=== PATIENT | female | born 1935 | race Caucasian/White ===

== ENCOUNTER 2023-11-19 15:35 | Outpatient (AMB) | payer MEDICARE, SELFPAY ==
[2023-11-19 15:47] VITALS: BP 162/90; PULSE 66; O2SAT 99
--- NOTE | 2023-11-19 15:47 | A.OFFPC_ITS ---
Vital Signs 11/19/23 15:47 BMI Reason not done Patient refused/unable BP 162/90 H Blood Pressure Location Rt brachial Position Sitting Pulse 66 Pulse Source Pulse Oximeter Pulse Oximetry (%) 99 Oxygen Delivery Method Room Air Intake Visit Reasons: Establish Care not a transfer Intake Note: Patient is accompanied by her daughter. Patient is here to establish care and she has concerns for her ability to breath upon exertion. Patient reports feeling nauseous all of the time, swollen legs, feels weakness all over the body, not eating, and overall feels sick and cold. Patient reports these symptoms have been going on since August 2023 with a slow and steady decline. Patient was seen at [facility] in August 2023 for about 4-5 days. Patients daughter reports when patient tries to move around to get a bottle of water patient becomes out of breath. Patients daughter reports she is seen by Dr. Coleman who seems more interested in her pacemaker than her cardiac health overall. Patients daughter reports she is usually very active within her community and since august 2023 she has not been able to do any of the things she would normally do. Patients daughter has a pressure sore on her bum she needs checked out. Nurse Staff Industrial Required: No Accompanied by: Daughter Allergies cephalexin [From Keflex] Allergy (Severe, Verified 11/19/23 16:01) Unknown ciclopirox [From Loprox] Allergy (Severe, Verified 11/19/23 16:01) Unknown ciprofloxacin Allergy (Severe, Verified 11/19/23 16:01) Unknown hydromorphone [From Dilaudid] Allergy (Severe, Verified 11/19/23 16:01) Unknown tetracycline Allergy (Severe, Verified 11/19/23 16:01) Unknown Tobacco use date assessed: 11/19/23 Fall risk assessment: No Falls in past year Last assessed Fall Risk: 11/19/23 Dental Screening Dental Screen Date: 11/19/23 Did you have a dental visit in the last 12 months?: Yes Did you have a dental problem in the last 6 months where you did not have access to dental care?: No Was dental information given to patient?: Patient has dentist HPI HPI Comments History of Present Illness Details The patient is a 88-year-old female with a past medical history of paroxysmal atrial fibrillation, diastolic CHF, hypertension, pacemaker, chest pain, multiple pulmonary nodules, renal lesion, hypertension, lymphedema presenting to establish care. She is transferring from [facility]. CV: On amlodipine 5 mg daily, spironolactone 25 mg daily, Xarelto 20 mg daily. Follows with [facility] EP, Dr Coleman. Seen at [facility] ER in August 2023. Presented with chest pain. ACS rule out. Prior to this she was hospitalized for cellulitis of the neck and noted to be hypokalemic. CT angio of the chest done at this ER visit noted a 1.3 cm right lower lobe pulmonary nodule that had been seen in the past but had increased in size. Chest CT in 6 months was recommended. There was a hyperdense lesion of the left kidney with recommendation for renal protocol MRI or CT. She was treated for hypertensive urgency. She reports exertion dyspnea She has intermittent chest pain Patient reports feeling nauseous all of the time. feels weakness all over the body, not eating, and overall feels sick and cold Leg have been swollen since taken off both furosemide and chlorthalidone during hospitalization. currently taking 10meq potassium. On spironolactone Colonoscopy was in 2013. There was a polypectomy done at that time. Her last H&H as of 08/2023 was normal ROS see HPI PHYSICAL EXAM: GENERAL: Alert and oriented x 3. NAD EYES: EOMI. Anicteric. HENT: Moist mucous membranes. No scleral icterus. LUNGS: Clear to auscultation bilaterally. CARDIOVASCULAR: Regular rate and rhythm. No murmur. No JVD. ABDOMEN: Soft, non-tender +bs EXTREMITIES: 1+ b/l lower extremity edema SKIN: Thin. Senile purpura. NEUROLOGIC: No focal neurological deficits. Generally weak-using wheelchair PSYCHIATRIC: Cooperative. Appropriate mood and affect [facility] Medical History History of echocardiogram GERD (gastroesophageal reflux disease) Epileptic seizure Venous insufficiency Diverticulosis Pacemaker Lymphedema Hypertension Sick sinus syndrome Lumbar degenerative disc disease CHF (congestive heart failure) Atrial fibrillation Hypokalemia Chest pain Multiple pulmonary nodules Renal lesion Surgical History History of colonoscopy with polypectomy History of cholecystectomy History of hysterectomy Family History Mother Hypertension Father Hypertension Cancer Social History Household Members: Other Housing: Assisted Living Facility 75 years or older and lives alone: No Alcohol intake: unknown Patient Tobacco Use Status: Refuse Tobacco use screen e-Cigarette/Vaping Use: Never Used Use of substances other than those prescribed or required for medical reasons: No Have you been hit, kicked, punched, or otherwise hurt by someone within the past year? If so, by whom?: No Do you feel safe in your current relationship?: No Current Relationship Is there a partner from a previous relationship who is making you feel unsafe now?: No Are you made to feel afraid or neglected: No service: No Current occupational status: retired Current occupational exposures/hazards: No Cognitive needs: No Hearing needs: Yes Vision needs: Yes Questionnaire PHQ-9 Over the last 2 weeks, how often have you been bothered by any of the following problems? 23728 - PHQ-9 Billing: Patient declined-do not bill Source: Developed by Drs. Getachew Marrero, Daphne Slater, Elliott Graves and colleagues, with an educational russell from [employer]. Thrive Questionnaire Date Thrive assessed: 11/19/23 I am a: Patient What is your living situation today?: I have a steady place to live Within the past 12 months, did the food you bought not last and you didn't have the money to get more?: Never true Within the past 12 months, did you worry whether your food would run out before you got money to buy more?: Never true Do you have trouble paying for medicines?: No Do you have trouble getting transportation to medical appointments?: No Do you have trouble paying your heating and electricity bill?: No Do you have trouble taking care of your child, family member or friend?: No Do you have trouble with day-to-day activities such as bathing, preparing meals, shopping, managing finances, etc.?: Yes (bathing) Are you currently unemployed and looking for a job?: No Are you interested in more education?: No Please select the resources that you would like help with: Daily support and None Currently or been in a relationship where the following occur: No concerns reported THRIVE Score: 0 AUDIT C Alcohol Use Questionnaire (AUDIT-C) 1. How often do you have a drink containing alcohol?: Never 3. How often do you have six or more drinks on one occasion?: Never Total Score: 0 DANAY-7 AMB Questionnaire DANAY-7 Date DANAY - 7 assessed: 11/19/23 Source: Developed by Drs. Getachew Marrero, Daphne Slater, Elliott Graves and colleagues, with an educational russell from [employer]. DANAY-7 Assessment Billing DANAY-7 Assessment Tool: pt declined-do not bill Physical exam (Primary Care) Vital Signs: Last Vital Signs Pulse 66 11/19/23 15:47 BP 162/90 H 11/19/23 15:47 Pulse Ox 99 11/19/23 15:47 Oxygen Delivery Method Room Air 11/19/23 15:47 Tobacco/Smoking Status: Tobacco use Status Tobacco use date assessed 11/19/23 11/19/23 16:06 Thrive Assessment: Date of Thrive Assessment Date Thrive assessed 11/19/23 11/19/23 16:13 Currently or been in a relationship where the following occur: No concerns reported Assessment and Plan Assessment & Plan (1) CHF (congestive heart failure): Code(s): I50.9 - Heart failure, unspecified Qualifiers: Heart failure type: diastolic Heart failure chronicity: acute on chronic Qualified Code(s): I50.33 - Acute on chronic diastolic (congestive) heart failure Plan: Needs to update echo and stress test radha. Last echo 2021. Hypervolemic on exam Referral placed to Dr Velasco. Continue follow up with EP Restart furosemide -40mg daily. Increase potassium to 20meq. Labs one week (2) Atrial fibrillation: Code(s): I48.91 - Unspecified atrial fibrillation Qualifiers: Atrial fibrillation type: persistent (not longstanding) Qualified Code(s): I48.19 - Other persistent atrial fibrillation Plan: s/p pacemaker (3) Sick sinus syndrome: Code(s): I49.5 - Sick sinus syndrome (4) Renal lesion: Code(s): N28.9 - Disorder of kidney and ureter, unspecified Plan: CT ordered (5) Pressure ulcer: Code(s): L89.90 - Pressure ulcer of unspecified site, unspecified stage Qualifiers: Pressure injury location: buttock Pressure injury stage: stage 1 Laterality: right Qualified Code(s): L89.311 - Pressure ulcer of right buttock, stage 1 Plan: Home bound due to wheelchair status, unable to self propel, generalized weakness (6) Lung nodule: Code(s): R91.1 - Solitary pulmonary nodule Plan: upcoming visit with Dr Gomes at [facility] Orders: Orders NM reynold perf SPECT rest & str 11/19/23 R07.9 - Chest pain, unspecified Comprehensive Met. Panel 11/19/23 I50.9 - Heart failure, unspecified, I89.0 - Lymphedema, not elsewhere classified CA echo transthoracic complete 11/19/23 I50.9 - Heart failure, unspecified, R07.9 - Chest pain, unspecified CT abdomen wo/w IV con 11/19/23 N28.89 - Other specified disorders of kidney and ureter Referrals Cardiology Referral I48.91 - Unspecified atrial fibrillation, I50.9 - Heart failure, unspecified [facility] Referral I89.0 - Lymphedema, not elsewhere classified, L89.90 - Pressure ulcer of unspecified site, unspecified stage, R53.1 - Weakness Medications: New furosemide 40 mg PO DAILY 90 tabs 3RF potassium chloride ER 20 mEq (2 x 10 mEq) PO DAILY 180 caps 3RF 90 days Coding Level of Care Code New Pt Level 5 (71467) Complex EM visit Add On G2211 Diagnoses Acute on chronic diastolic congestive heart failure I50.33 Heart failure type: diastolic Heart failure chronicity: acute on chronic Persistent atrial fibrillation I48.19 Atrial fibrillation type: persistent (not longstanding) Sick sinus syndrome I49.5 Renal lesion N28.9 Pressure injury of right buttock, stage 1 L89.311 Pressure injury location: buttock Pressure injury stage: stage 1 Laterality: right Lung nodule R91.1 Time Spent (min) 70
== END 2023-11-19 16:52 | disposition home or self-care (01) ==
PROVIDERS: Visit Provider Internal Medicine
DX: I50.33 Acute on chronic diastolic (congestive) heart failure (principal); I48.19 Other persistent atrial fibrillation; I49.5 Sick sinus syndrome; N28.9 Disorder of kidney and ureter, unspecified; L89.311 Pressure ulcer of right buttock, stage 1; R91.1 Solitary pulmonary nodule
CPT/HCPCS: 99205; G2211

== ENCOUNTER 2024-01-27 14:02 | Outpatient (AMB) | payer MEDICARE, SELFPAY ==
--- NOTE | 2024-01-27 14:08 | A.OFFPC_ITS ---
Vital Signs 01/27/24 14:09 Height 5 ft 5 in Weight 161 lb BMI 26.8 BP 128/66 Blood Pressure Location Rt brachial Position Sitting Pulse 61 Pulse Source Pulse Oximeter Pulse Oximetry (%) 95 Oxygen Delivery Method Room Air Intake Visit Reasons: hdf/ blood pressure/chs/edema ect Accompanied by: Daughter Allergies cephalexin [From Keflex] Allergy (Severe, Verified 01/27/24 14:15) Unknown ciclopirox [From Loprox] Allergy (Severe, Verified 01/27/24 14:15) Unknown ciprofloxacin Allergy (Severe, Verified 01/27/24 14:15) Unknown hydromorphone [From Dilaudid] Allergy (Severe, Verified 01/27/24 14:15) Unknown tetracycline Allergy (Severe, Verified 01/27/24 14:15) Unknown Tobacco use date assessed: 01/27/24 Fall risk assessment: 1 Fall in past year Last assessed Fall Risk: 01/27/24 Dental Screening Dental Screen Date: 01/27/24 Did you have a dental visit in the last 12 months?: Yes Did you have a dental problem in the last 6 months where you did not have access to dental care?: No Was dental information given to patient?: Patient has dentist HPI HPI Comments History of Present Illness Details The patient is a 88-year-old female with a past medical history of paroxysmal atrial fibrillation, diastolic CHF, hypertension, pacemaker, chest pain, multiple pulmonary nodules, renal lesion, hypertension, lymphedema presenting for follow up CV: On bumex, spironolactone 25 mg daily, Xarelto 20 mg daily, carvedilol. Follows with [facility] EP, Dr Coleman. Following with cardiology. Seen in [facility] ER 12/31 for sharp chest pains. Cardiology consulted -no concern for ACS. Hypervolemic is setting of not taking meds for ongoing nausea, vomiting, stool changes. Imaging consistent with gastritis, gastroenteritis. GI consult pending. Seen at [facility] ER in August 2023. Presented with chest pain. ACS rule out. Prior to this she was hospitalized for cellulitis of the neck and noted to be hypokalemic. CT angio of the chest done at this ER visit noted a 1.3 cm right lower lobe pulmonary nodule that had been seen in the past but had increased in size. Chest CT in 6 months was recommended. There was a hyperdense lesion of the left kidney with recommendation for renal protocol MRI or CT. She was treated for hypertensive urgency. Patients reports her only concern is rectal pain. She has an upcoming visit with colorectal. She has a history of anal fissure. Colonoscopy was in 2013. There was a polypectomy done at that time. Her last H&H as of 08/2023 was normal ROS see HPI PHYSICAL EXAM: GENERAL: Alert and oriented x 3. NAD EYES: EOMI. Anicteric. HENT: Moist mucous membranes. No scleral icterus. LUNGS: Clear to auscultation bilaterally. CARDIOVASCULAR: Regular rate and rhythm. No murmur. No JVD. ABDOMEN: Soft, non-tender +bs EXTREMITIES: 1+ b/l lower extremity edema SKIN: Thin. Senile purpura. NEUROLOGIC: No focal neurological deficits. Generally weak-using wheelchair PSYCHIATRIC: Cooperative. Appropriate mood and affect [facility] Medical History History of echocardiogram GERD (gastroesophageal reflux disease) Epileptic seizure Venous insufficiency Diverticulosis Pacemaker Lymphedema Hypertension Sick sinus syndrome Lumbar degenerative disc disease CHF (congestive heart failure) Atrial fibrillation Hypokalemia Chest pain Multiple pulmonary nodules Renal lesion Surgical History History of colonoscopy with polypectomy History of cholecystectomy History of hysterectomy Family History Mother Hypertension Father Hypertension Cancer Social History Household Members: Other Housing: Assisted Living Facility 75 years or older and lives alone: No Alcohol intake: unknown Patient Tobacco Use Status: Never used Tobacco e-Cigarette/Vaping Use: Never Used service: No Current occupational status: retired Current occupational exposures/hazards: No Cognitive needs: No Hearing needs: Yes Vision needs: Yes Questionnaire PHQ-9 Over the last 2 weeks, how often have you been bothered by any of the following problems? 1. Little interest or pleasure in doing things: not at all 2. Feeling down, depressed, or hopeless: not at all 3. Trouble falling or staying asleep, or sleeping too much: not at all 4. Feeling tired or having little energy: not at all 5. Poor appetite or overeating: nearly every day 6. Feeling bad about yourself - or that you are a failure or have let yourself or your family down: not at all 7. Trouble concentrating on things, such as reading the newspaper or watching television: not at all 8. Moving or speaking so slowly that other people could have noticed. Or the opposite - being so fidgety or restless that you have been moving around a lot more than usual: not at all 9. Thoughts that you would be better off or of hurting yourself in some way: not at all Total score: 3 Depression Screening Interpretation: Negative (neg) Depression Screening Done: Yes 79700 - PHQ-9 Billing: Yes Source: Developed by Drs. Getachew Marrero, Daphne Slater, Elliott Graves and colleagues, with an educational russell from [employer]. Thrive Questionnaire Date Thrive assessed: 01/27/24 I am a: Patient What is your living situation today?: I have a steady place to live Within the past 12 months, did the food you bought not last and you didn't have the money to get more?: Never true Within the past 12 months, did you worry whether your food would run out before you got money to buy more?: Never true Do you have trouble paying for medicines?: No Do you have trouble getting transportation to medical appointments?: No Do you have trouble paying your heating and electricity bill?: No Do you have trouble taking care of your child, family member or friend?: No Do you have trouble with day-to-day activities such as bathing, preparing meals, shopping, managing finances, etc.?: I choose not to answer this question Are you currently unemployed and looking for a job?: No Are you interested in more education?: No Please select the resources that you would like help with: None Currently or been in a relationship where the following occur: No concerns reported THRIVE Score: 0 AUDIT C Alcohol Use Questionnaire (AUDIT-C) 1. How often do you have a drink containing alcohol?: Never 3. How often do you have six or more drinks on one occasion?: Never Total Score: 0 DANAY-7 AMB Questionnaire DANAY-7 Date DANAY - 7 assessed: 01/27/24 Feeling nervous, anxious, or on edge: 0 = Not at all Not being able to stop or control worryin = Not at all Worrying too much about different things: 0 = Not at all Trouble relaxin = Not at all Being so restless that it is hard to sit still: 0 = Not at all Becoming easily annoyed or irritable: 0 = Not at all Feeling afraid as if something awful might happen: 0 = Not at all Total DANAY-7 score (0-4 normal; 5-9 mild; 10-14 moderate; 15-21 severe): 0 Source: Developed by Drs. Getachew Marrero, Daphne Slater, Elliott Graves and colleagues, with an educational russell from [employer]. DANAY-7 Assessment Billing DANAY-7 Assessment Tool: DANAY-7 Assessment 37285 Physical exam (Primary Care) Vital Signs: Last Vital Signs Pulse 61 01/27/24 14:09 BP 128/66 01/27/24 14:09 Pulse Ox 95 01/27/24 14:09 Oxygen Delivery Method Room Air 01/27/24 14:09 BMI result Body Mass Index 26.8 Tobacco/Smoking Status: Tobacco use Status Tobacco use date assessed 01/27/24 01/27/24 14:19 Patient Tobacco Use Status Never used Tobacco 01/27/24 14:19 e-Cigarette/Vaping Use Never Used 01/27/24 14:19 PHQ-9: PHQ-9 Score PHQ-9: Total score 3 02/10/24 22:17 Depression Screening Interpretation: Negative (neg) Thrive Assessment: Date of Thrive Assessment Date Thrive assessed 01/27/24 01/27/24 14:19 Currently or been in a relationship where the following occur: No concerns reported Coding Level of Care Code Est Pt Level 4 (72858) Diagnoses Acute on chronic diastolic congestive heart failure I50.33 Heart failure chronicity: acute on chronic Heart failure type: diastolic Gastritis, presence of bleeding unspecified, unspecified chronicity, unspecified gastritis type K29.70 Chronicity: unspecified Gastritis bleeding: presence of bleeding unspecified Gastritis type: unspecified gastritis Additional Codes DANAY-7 Assessment Billing - DANAY-7 Assessment Tool: DANAY-7 Assessment 20247 ([id number])
[2024-01-27 14:09] VITALS: BP 128/66; PULSE 61; O2SAT 95; BMI 26.8
== END 2024-01-27 15:13 | disposition home or self-care (01) ==
PROVIDERS: Visit Provider Internal Medicine
DX: I50.33 Acute on chronic diastolic (congestive) heart failure (principal); K29.70 Gastritis, unspecified, without bleeding

== ENCOUNTER → 2024-01-27 14:02 | Outpatient (BNVA) | payer MEDICARE, SELFPAY | PROVIDERS: Visit Provider Internal Medicine | DX: I48.0 Paroxysmal atrial fibrillation (principal); I11.0 Hypertensive heart disease with heart failure; I50.33 Acute on chronic diastolic (congestive) heart failure; K29.70 Gastritis, unspecified, without bleeding; Z79.01 Long term (current) use of anticoagulants; Z79.899 Other long term (current) drug therapy; Z95.0 Presence of cardiac pacemaker | CPT/HCPCS: 96127; 99212 ==

== ENCOUNTER → 2024-02-17 23:59 | Outpatient (BNV) | payer MEDICARE, SELFPAY | PROVIDERS: Visit Provider Internal Medicine | DX: I13.0 Hypertensive heart and chronic kidney disease with heart failure and stage 1 through stage 4 chronic kidney disease, or unspecified chronic kidney disease (principal); I50.32 Chronic diastolic (congestive) heart failure; N18.2 Chronic kidney disease, stage 2 (mild) | CPT/HCPCS: G0179 ==

== ENCOUNTER → 2024-02-25 23:59 | Outpatient (BNV) | payer MEDICARE, SELFPAY | PROVIDERS: Visit Provider Internal Medicine | DX: I11.0 Hypertensive heart disease with heart failure (principal); I50.32 Chronic diastolic (congestive) heart failure | CPT/HCPCS: G0180 ==

== ENCOUNTER → 2024-03-04 23:59 | Outpatient (BNV) | payer MEDICARE, SELFPAY | PROVIDERS: Visit Provider Internal Medicine | DX: I13.0 Hypertensive heart and chronic kidney disease with heart failure and stage 1 through stage 4 chronic kidney disease, or unspecified chronic kidney disease (principal); I50.32 Chronic diastolic (congestive) heart failure; N18.2 Chronic kidney disease, stage 2 (mild); I89.0 Lymphedema, not elsewhere classified | CPT/HCPCS: G0179 ==

== ENCOUNTER 2024-05-26 14:59 | Outpatient (AMB) | payer MEDICARE, SELFPAY ==
--- NOTE | 2024-05-26 15:15 | A.OFFPC_ITS ---
Vital Signs 05/26/24 15:25 05/26/24 15:30 Height 5 ft 5 in Weight 175 lb 6 oz BMI 29.2 BP 148/84 H 142/68 H Blood Pressure Location Lt brachial Lt brachial Position Sitting Sitting Pulse 58 Pulse Source Pulse Oximeter Pulse Oximetry (%) 96 Oxygen Delivery Method Room Air Intake Visit Reasons: 3 month f/u Intake Note: Three month follow up. Daughter requesting to increase the bumetanide to 2 tablets daily, having increase extremity swelling. Was taking 2 tablets at [facility] and it helped. Needs bumetanide, irbesarten, and omeprazole refilled. 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: No Allergies cephalexin [From Keflex] Allergy (Severe, Verified 05/26/24 15:16) Unknown ciclopirox [From Loprox] Allergy (Severe, Verified 05/26/24 15:16) Unknown ciprofloxacin Allergy (Severe, Verified 05/26/24 15:16) Unknown hydromorphone [From Dilaudid] Allergy (Severe, Verified 05/26/24 15:16) Unknown tetracycline Allergy (Severe, Verified 05/26/24 15:16) Unknown Tobacco use date assessed: 01/27/24 Dental Screening Dental Screen Date: 01/27/24 HPI HPI Comments History of Present Illness Details The patient is a 88-year-old female with a past medical history of paroxysmal atrial fibrillation, diastolic CHF, hypertension, pacemaker, chest pain, multiple pulmonary nodules, renal lesion, hypertension, lymphedema presenting for follow up CV: On bumex, spironolactone 25 mg daily, Xarelto 20 mg daily, carvedilol. Has had bothersome LE edema since bumex was decreased from 2mg twice daily to 1mg once daily. Follows with [facility] EP, Dr Coleman. Following with cardiology at [facility]. . Seen in [facility] ER 12/31 for sharp chest pains. Cardiology consulted -no concern for ACS. Seen at [facility] ER in August 2023. Presented with chest pain. ACS rule out. Prior to this she was hospitalized for cellulitis of the neck and noted to be hypokalemic. CT angio of the chest done at this ER visit noted a 1.3 cm right lower lobe pulmonary nodule that had been seen in the past but had increased in size. Chest CT in 6 months was recommended. There was a hyperdense lesion of the left kidney with recommendation for renal protocol MRI or CT. She was treated for hypertensive urgency. Patients reports her only concern is rectal pain. She has an upcoming visit with colorectal. She has a history of anal fissure. Colonoscopy was in 2013. There was a polypectomy done at that time. Her last H&H as of 08/2023 was normal. She had gastritis, gastroenteritis in 12/2023 for which she was treated in [place] ER. She has history of anal fissures, rectal pain and has seen colorectal. ROS see HPI PHYSICAL EXAM: GENERAL: Alert and oriented x 3. NAD EYES: EOMI. Anicteric. HENT: Moist mucous membranes. No scleral icterus. LUNGS: Clear to auscultation bilaterally. CARDIOVASCULAR: Regular rate and rhythm. No murmur. No JVD. ABDOMEN: Soft, non-tender +bs EXTREMITIES: 1+ b/l lower extremity edema. SKIN: Thin. Senile purpura. NEUROLOGIC: No focal neurological deficits. Generally weak PSYCHIATRIC: Cooperative. Appropriate mood and affect [facility] Medical History History of echocardiogram GERD (gastroesophageal reflux disease) Epileptic seizure Venous insufficiency Diverticulosis Pacemaker Lymphedema Hypertension Sick sinus syndrome Lumbar degenerative disc disease CHF (congestive heart failure) Atrial fibrillation Hypokalemia Chest pain Multiple pulmonary nodules Renal lesion Surgical History History of colonoscopy with polypectomy History of cholecystectomy History of hysterectomy Family History Mother Hypertension Father Hypertension Cancer Social History Household Members: Other Housing: Assisted Living Facility 75 years or older and lives alone: No Alcohol intake: unknown Patient Tobacco Use Status: Never used Tobacco e-Cigarette/Vaping Use: Never Used service: No Current occupational status: retired Current occupational exposures/hazards: No Cognitive needs: No Hearing needs: Yes Vision needs: Yes Questionnaire PHQ-9 Over the last 2 weeks, how often have you been bothered by any of the following problems? 1. Little interest or pleasure in doing things: not at all 2. Feeling down, depressed, or hopeless: not at all 3. Trouble falling or staying asleep, or sleeping too much: not at all 4. Feeling tired or having little energy: not at all 5. Poor appetite or overeating: not at all 6. Feeling bad about yourself - or that you are a failure or have let yourself or your family down: not at all 7. Trouble concentrating on things, such as reading the newspaper or watching television: not at all 8. Moving or speaking so slowly that other people could have noticed. Or the opposite - being so fidgety or restless that you have been moving around a lot more than usual: not at all 9. Thoughts that you would be better off or of hurting yourself in some way: not at all Total score: 0 Depression Screening Interpretation: Negative Depression Screening Done: Yes 88860 - PHQ-9 Billing: Yes Source: Developed by Drs. Getachew Marrero, Daphne Slater, Elliott rGaves and colleagues, with an educational russell from [employer]. Thrive Questionnaire Date Thrive assessed: 05/23/24 I am a: Patient What is your living situation today?: I have a steady place to live Within the past 12 months, did the food you bought not last and you didn't have the money to get more?: Never true Within the past 12 months, did you worry whether your food would run out before you got money to buy more?: Never true Do you have trouble paying for medicines?: No Do you have trouble getting transportation to medical appointments?: No Do you have trouble paying your heating and electricity bill?: No Do you have trouble taking care of your child, family member or friend?: No Do you have trouble with day-to-day activities such as bathing, preparing meals, shopping, managing finances, etc.?: No Are you currently unemployed and looking for a job?: No Are you interested in more education?: No Please select the resources that you would like help with: None Currently or been in a relationship where the following occur: No concerns reported THRIVE Score: 0 AUDIT C Alcohol Use Questionnaire (AUDIT-C) 1. How often do you have a drink containing alcohol?: Never Total Score: 0 DANAY-7 AMB Questionnaire DANAY-7 Date DANAY - 7 assessed: 05/26/24 Feeling nervous, anxious, or on edge: 0 = Not at all Not being able to stop or control worryin = Not at all Worrying too much about different things: 0 = Not at all Trouble relaxin = Not at all Being so restless that it is hard to sit still: 0 = Not at all Becoming easily annoyed or irritable: 0 = Not at all Feeling afraid as if something awful might happen: 0 = Not at all Total DANAY-7 score (0-4 normal; 5-9 mild; 10-14 moderate; 15-21 severe): 0 Source: Developed by Drs. Getachew Marrero, Daphne Slater, Elliott Graves and colleagues, with an educational russell from [employer]. DANAY-7 Assessment Billing DANAY-7 Assessment Tool: DANAY-7 Assessment 27843 Physical exam (Primary Care) Vital Signs: Last Vital Signs Pulse 58 05/26/24 15:25 BP 142/68 H 05/26/24 15:30 Pulse Ox 96 05/26/24 15:25 Oxygen Delivery Method Room Air 05/26/24 15:25 BMI result Body Mass Index 29.2 Tobacco/Smoking Status: Tobacco use Status Tobacco use date assessed 01/27/24 05/26/24 15:23 Patient Tobacco Use Status Never used Tobacco 05/26/24 15:32 e-Cigarette/Vaping Use Never Used 05/26/24 15:32 PHQ-9: PHQ-9 Score PHQ-9: Total score 0 05/27/24 06:26 Depression Screening Interpretation: Negative Thrive Assessment: Date of Thrive Assessment Date Thrive assessed 05/23/24 05/26/24 15:23 Currently or been in a relationship where the following occur: No concerns reported Coding Level of Care Code Est Pt Level 5 (41340) Diagnoses Acute on chronic diastolic congestive heart failure I50.33 Heart failure chronicity: acute on chronic Heart failure type: diastolic Persistent atrial fibrillation I48.19 Atrial fibrillation type: persistent (not longstanding) Sick sinus syndrome I49.5 Gastritis, presence of bleeding unspecified, unspecified chronicity, unspecified gastritis type K29.70 Chronicity: unspecified Gastritis bleeding: presence of bleeding unspecified Gastritis type: unspecified gastritis Additional Codes DANAY-7 Assessment Billing - DANAY-7 Assessment Tool: DANAY-7 Assessment 35126 ([id number]) PHQ-9 - 57692 - PHQ-9 Billing: Yes ([id number]) Time Spent (min) 47 Assessment & Plan Assessment & Plan (1) CHF (congestive heart failure): Code(s): I50.9 - Heart failure, unspecified Category: Medical Qualifiers: Heart failure chronicity: acute on chronic Heart failure type: diastolic Qualified Code(s): I50.33 - Acute on chronic diastolic (congestive) heart failure Plan: Hypervolemic. No dyspnea. She will increase bumex to 2mg twice daily. She has upcoming visit with cardiology in 5 weeks. She will do BMP while at [facility] then due to difficulty getting out of the house. (2) Atrial fibrillation: Code(s): I48.91 - Unspecified atrial fibrillation Category: Medical Qualifiers: Atrial fibrillation type: persistent (not longstanding) Qualified Code(s): I48.19 - Other persistent atrial fibrillation Plan: continues AC. (3) Sick sinus syndrome: Code(s): I49.5 - Sick sinus syndrome Category: Medical Plan: s/p PPM. continue f/up cardiology (4) Gastritis: Code(s): K29.70 - Gastritis, unspecified, without bleeding Category: Medical Qualifiers: Chronicity: unspecified Gastritis bleeding: presence of bleeding unspecified Gastritis type: unspecified gastritis Qualified Code(s): K29.70 - Gastritis, unspecified, without bleeding Plan: stable on PPI Orders: Orders Basic Metabolic Panel 05/26/24 E87.6 - Hypokalemia Medications: New omeprazole 40 mg PO BID 180 caps 3RF irbesartan 75 mg PO DAILY 90 tabs 3RF Changed From bumetanide 1 mg PO DAILY 90 tabs 3RF To bumetanide 2 mg (2 x 1 mg) PO BID 360 tabs 3RF Refilled [nifedipine 0.2% ointment] Apply a dime sized amount per rectum twice daily 60 grams 0RF K60.2 - Anal fissure, unspecified
[2024-05-26 15:25] VITALS: BP 148/84; PULSE 58; O2SAT 96; BMI 29.2
[2024-05-26 15:30] VITALS: BP 142/68
--- OUTSIDE RECORDS SUMMARY | 2024-05-26 16:01 | XMS_ITS | Clinical Summary ---
Author Organization [facility] Address [address] [address] [place] [address] Phone Care Team Providers Care Consular Officer Name Role Phone Shanti Constantino MD Primary Care Provider Allergies Active Allergy Reactions Criticality Noted Date Comments Adhesive Tape Other (see comments) 09/07/2021 Aspirin Other (see comments) 09/07/2021 Celecoxib Other (see comments) 09/07/2021 Cephalexin Nausea Only 01/16/2019 Ciclopirox 02/22/2022 Ciprofloxacin 02/21/2022 Hydromorphone Nausea Only,Other (s ee comments) 09/19/2020 Ibuprofen Other (see comments) 09/07/2021 Latex Other (see comments) 09/07/2021 Penicillin G Other (see comments) 09/07/2021 Tetracycline Other (see comments) 09/19/2020 Tetracyclines & Related Nausea Only,Othe r (see comments) 09/19/2020 Medications Cholecalciferol (Vitamin D3) 1.25 MG (89464 UT) capsule Take 1 capsule by mouth every 14 (fourteen) days 1 Active zonisamide (ZONEGRAN) 100 MG capsule TAKE 3 CAPSULES BY MOUTH EVERY OTHER DAY ALTERNATING WITH 4 CAPSULES EVERY OTHER DAY 1 Active omeprazole (PriLOSEC) [address] capsule Take 40 mg by mouth 1 (one) time each day 8 Active buPROPion SR (WELLBUTRIN SR) 100 MG 12 hr tablet Take 1 tablet by mouth 1 (one) time each day 1 Active Xarelto 20 MG tablet Take 1 tablet by mouth at bed time 1 Active traMADol (ULTRAM) 50 MG tablet Take 1 tablet by mouth 3 (three) times a day if needed 1 Active ipratropium (ATROVENT) 0.06 % nasal spray USE 2 SPRAYS INTO EACH NOSTRIL 3 TIMES A DAY 9 Active irbesartan (AVAPRO) 300 MG tablet Take 1 tablet by mouth 1 (one) time each day 1 Active atorvastatin (LIPITOR) 10 MG tablet Take 10 mg by mouth 1 (one) time each day Active chlorthalidone 25 MG tablet TAKE 1 TABLET BY MOUTH 1 TIME EACH DAY. 90 tablet 3 3 Active spironolactone (ALDACTONE) 25 MG tablet TAKE 1 TABLET BY MOUTH 1 TIME EACH DAY. 90 tablet 4 Active Active Problems Problem Noted Date Diagnosed Date Degeneration of lumbar intervertebral disc 02/22 Diverticular disease 02/22/2022 Ex-smoker 02/22/2022 Hiatal hernia 02/22/2022 Lumbar spondylosis 02/22/2022 Lymphedema 02/22/2022 Neuropathy 02/22/2022 Postcalcaneal bursitis 02/22/2022 Radicular pain 02/22/2022 Somatization disorder 02/22/2022 Vascular insufficiency 02/22/2022 Venous hypertension 02/22/2022 Acquired lymphedema of lower extremity Chronic depression 01/10/2022 Chronic diastolic heart failure 01/10/2022 Degenerative joint disease involving multiple marco ints 01/10/2022 Messina's esophagus 01/10/2022 Gastroesophageal reflux disease 01/10/2022 Gout 01/10/2022 Multiple nodules of lung 01/10/2022 Obesity 01/10/2022 Osteoarthritis of knee 01/10/2022 Paralysis of diaphragm 01/10/2022 Polyp of colon 01/10/2022 Secondary hyperparathyroidism 01/10/2022 Sick sinus syndrome 01/10/2022 Subclinical hypothyroidism 01/10/2022 Type 2 diabetes mellitus 01/10/2022 Atherosclerosis of [place] arteries of the extrem ities 10/17/2021 Hypertension 10/12/2020 Hypertensive disorder 06/18/2013 Resolved Problems Problem Noted Date Diagnosed Date Resolved Date Cough 09/19/2020 09/19/2020 Seizure 09/19/2020 09/19/2020 Sleep apnea 09/19/2020 09/19/2020 Atrial fibrillation 12/31/2014 09/20/19 21 Headache 01/02/2013 09/19/2020 Presence of cardiac pacemaker 01/02/2013 09/19/2020 Restless legs 01/02/2013 09/19/2020 Vitamin D deficiency 07/15/2012 021 Epilepsy 05/29/2012 09/19/2020 Immunizations Name Administration Dates Next Due Pfizer SARS-COV-2 03/30/2021,06/26/2020,06/05/19 21 Family History Medical History Relation Comments Cancer Brother Cancer Child Diabetes Child Hypertension Child Cancer Father Hypertension Mother Cancer Sister Relation Status Comments Brother Child Father Mother Sister Social History Tobacco Use Types Packs/Day Years Used Date Smoking Tobacco: Never Smokeless Tobacco: Never Tobacco Cessation:Counseling Given: No Alcohol Use Standard Drinks/Week Comments Never 0 (1 standard drink = 0.6 oz pur e alcohol) Comments Unknown Sex and Gender Information Value Date Recorded Sex Assigned at Not on file Legal Sex Female 5:14 PM EST Gender Identity Not on file Sexual Orientation Not on file Last Filed Vital Signs Vital Sign Reading Time Taken Comments Blood Pressure 142/69 03/29/2023 11:39 AM EST Pulse 88 03/29/2023 11:39 AM EST Temperature - - Respiratory Rate - - Oxygen Saturation 98% 10/17/2021 1:09 PM EDT Inhaled Oxygen Concentration - - Weight 90.7 kg (200 lb) 03/29/2023 11:39 AM EST Height - - Body Mass Index - - Plan of Treatment Health Maintenance Due Date Last Done Comments Pneumococcal Vaccine: 65+ Ye ars (1 of 2 - PCV) 1941 Diabetes: Hemoglobin A1C 02/09/2022 01/25/2021 Diabetes: Ophthalmology Exam 02/09/2022 Diabetes: Pedal Pulse Checked 02/09/2022 Diabetes: Sensory Foot Exam 02/09/2022 Diabetes: Visual Foot Exam 02/09/2022 Influenza Vaccine (#1) 2023 Hepatitis B Vaccine Aged Out No longe r eligible based on patient's age to complete this topic Procedures Procedure Name Priority Date/Time Associated Diagnosis Comments EXT RESULT ENTRY Routine 01/25/2021 from Last 3 Months or Most Recently Relevant to Health Maintenance Results * (ABNORMAL) EXT RESULT ENTRY (01/25/2021) WBC 5.9 3.3 - 10.0 10*3/ML Red Blood Cell Count 4.65 Hemoglobin 13.4 12.0 - 16.0 Hematocrit 42.7 36.0 - 46.0 Platelets 207 150 - 399 10*3/UL MCV 91.8 82.0 - 108.0 Sodium 140 137 - 147 Potassium 4.2 3.4 - 5.5 Chloride 102 99 - 108 Bicarbonate (CO2) 27 22 - 30 mmol/L Anion Gap 11 <=30 MMOL/L Glucose 103(A) 60 - 200 BUN 16(A) 4 - 21 mg/dL Creatinine 0.70 0.50 - 1.10 mg/dL Calcium 10.0 8.7 - 10.7 mg/dL eGFR Non-Afr [place] 78 Vitamin D, 25-OH, Total 63.5 ng/mL Hemoglobin A1C 5.8 4.0 - 6.0 01/25/2021 Historical Provider LAB BLOOD ORDERABLES Cindy l Result from Last 3 Months or Most Recently Relevant to Health Maintenance Insurance [id number] [place] [address] [facility] MEDICARE [facility] MEDICARE Care Teams Consular Officer Relationship Specialty Start Date End Date Shanti Constantino MD [address] [place] [address] [address] [place] [address] PCP - General Endocrinology 09/19/20
--- OUTSIDE RECORDS SUMMARY | 2024-05-26 16:01 | XMS_ITS ---
Author Organization [facility] Address Unknown Allergies, Adverse Reactions, Alerts Substance Reaction Status Noted Date Resolved Date Tetracycline active 12/10/2023 Loprox active 12/10/2023 Keflex active 12/10/2023 Dilaudid active 12/10/2023 Ciprofloxacin active 12/10/2023 Problems Problem Status Start Date End Date MUSCLE WASTING AND ATROPHY, NOT ELSEWHERE CLASSIFIED, MULTIPLE SITES (Primary) (M62.59 - ICD-10-CM) ACTIVE 12/10/2023 ACUTE ON CHRONIC SYSTOLIC (C ONGESTIVE) HEART FAILURE (I50.23 - ICD-10-CM) ACTIVE 12/10/2023 GASTRITIS, UNSPECIFIED, WITH OUT BLEEDING (K29.70 - ICD-10-CM) ACTIVE 12/10/2023 HYPERTENSIVE URGENCY (I16.0 - ICD-10-CM) ACTIVE 12/10/2023 PAROXYSMAL ATRIAL FIBRILLATION (I48.0 - ICD-10-CM) ACT PRIYA 12/10/2023 EPILEPSY, UNSPECIFIED, NOT I NTRACTABLE, WITHOUT STATUS EPILEPTICUS (G40.909 - ICD-10-CM) ACTIVE 12/10/2023 UNSPECIFIED PROTEIN-CALORIE MALNUTRITION (E46 - ICD-10 -CM) ACTIVE 12/10/2023 OTHER HYPERTROPHIC CARDIOMYOPATHY (I42.2 - ICD-10-CM) ACTIVE 12/10/2023 CHRONIC KIDNEY DISEASE, STAGE 2 (MILD) (N18.2 - ICD-10 -CM) ACTIVE 12/10/2023 ESSENTIAL (PRIMARY) HYPERTENSION (I10 - ICD-10-CM) ACT PRIYA 12/10/2023 HYPOKALEMIA (E87.6 - ICD-10-CM) ACTIVE PRESENCE OF CARDIAC PACEMAKER (Z95.0 - ICD-10-CM) ACTI VE 12/10/2023 GASTRO-ESOPHAGEAL REFLUX DIS EASE WITHOUT ESOPHAGITIS (K21.9 - ICD-10-CM) ACTIVE 12/10/2023 RASH AND OTHER NONSPECIFIC SKIN ERUPTION (R21 - ICD-10 -CM) ACTIVE 12/10/2023 Results * XRAY CHEST 2 VIEW Performed by: [facility] Component Value Range Date XRAY CHEST 2 VIEW XRAY CHEST 2 VIEWSee NoteFINDINGS: Lungs: No focal consolidation. Pulmonary vasculature is within normal limits. Pleura: No pneumothorax. No pleural effusion. Heart and Mediastinum: The cardiomediastinal silhouette is normal in size and contour.CONCLUSION: No acute cardiopulmonary process. No definitive radiographic evidence of TB.ELECTRONICALLY SIGNED BY CHRISTA SOTO M.D. 12/12/2023 12:10:05 PM EDT.Reason for Study: I10 ESSENTIAL (PRIMARY) HYPERTENSIONPrincipal Result Conveyor Monitor: CHRISTA SOTO ([id number])Stock Selector: DIANNA FANG (DCONDON)Geological Scout Stock Selector: ISABEL 12/12/2023 12:10 pm EDT Encounters Encounter Performer Performer Role Encounter Diagnoses Location Date Discharge - Discharged / Transferred to [facility] 4 05:43 pm EDT - 4 11:00 am EDT Immunizations Vaccine Date Influenza Pfizer Covid-19 Booster (SARS-COV-2) vac cine 03/30/2021 12:00 pm EST Pfizer Covid-19 Booster (SARS-COV-2) vac cine 06/26/2020 12:00 pm EST Pfizer Covid-19 Booster (SARS-COV-2) vac cine 06/05/2020 12:00 pm EST Social History
--- OUTSIDE RECORDS SUMMARY | 2024-05-26 16:01 | XMS_ITS | Patient Health Record ---
Author Organization [facility] Address [address] [place] [address] Care Team Providers Care Day Habilitation Specialist Name Role Phone Dougie MENDEZ, Shanti Primary Care Provider Unavailable Nicolas Lauren Unavailable [phone] Allergies Allergen (clinical drug ingredient) Drug/Non Drug Allergy documented on EMR Reaction Allergy Type Onset Date Status celecoxib Celebrex Unknown Drug Allergy Active hydromorphone Dilaudid Unknown Drug Allergy Act mauro Keflex Unknown Drug Allergy Active Motrin Unknown Drug Allergy Active Adhesive Unknown Allergy Active aspirin Aspirin Unknown Drug Allergy Active codeine Codeine Unknown Drug Allergy Active Latex Latex Unknown Allergy Active Penicillin Unknown Drug Allergy Active tetracycline Tetracycline vomiting Drug Allergy A ctive Reason For Referral No Information Medications Medication SIG (Take, Route, Frequency, Duration) Notes Start Date End Date Status Vitamin D2 Active Multivitamins Active Chlorthalidone 25 MG 1 tablet in the morning with food Orally Once a day for 30 day(s) Active Wellbutrin 100 mg Ac tive Irbesartan-hydroCHLOROthia zide 300-12.5 MG 1 tablet Orally Once a day 08/13/2013 Active Lasix 40 mg Active Calcium 600 mg Activ e PriLOSEC 20 mg Not-T aking Vitamin D (Ergocalciferol) 50,000 units wkly Not-Taking Azelastine HCl Activ e methIMAzole 10 MG Orally twice a day Not-Taking Atrovent Active Potassium Chloride 10 mg Not-Taking Omeprazole Active Pneumatic Compression Boot Active Fluticasone Propionate Active Ammonium Lactate 12 % 1 application to affected area Externally to feet Twice a day for 30 days Active Spironolactone 25 MG 1 tablet Orally for 30 day(s) Active Xarelto Active Atorvastatin Calcium 10 MG 1 tablet Oral ly Once a day for 30 day(s) Active Zonegran 100 MG 1 capsule Orally Active Carvedilol 6.25 MG Orally N ot-Taking Dofetilide 500 MCG Orally every 12 hours Not-Taking Immunizations Vaccine Route Administration Date Status Comme nts COVID-19 Pfizer BioNTech Vaccine Unknown 06/05/2020 Adm inistered COVID-19 Pfizer BioNTech Vaccine Unknown 06/26/2020 Adm inistered Social History Tobacco Use: Social History Observation Description Date Details (start date - stop date) Never Smoker NA - NA Tobacco Use/Smoking Question Answer Notes Are you a: nonsmoker Additional Findings: Tobacco Non-User Current no n-smoker Alcohol Screen Question Answer Notes Did you have a drink containing alcohol in the p ast year? No Points 0 Interpretation Negative Tobacco use other than smoking: Question Answer Notes Are you an other tobacco user? No Problems Problem Type SNOMED Code ICD Code Onset Dates Problem Status W/U Status Risk Notes Problem [id number] Atherosclerosis of [place] artery of both lower extremities, with unspecified presence of clinical manifestation (I70.203) Active confirmed Plan Of Treatment Pending Test Test Name Order Date [id number] NAIL, 6 OR MORE 05/03/2011 54331-JSORYBJ NAIL, 6 OR MORE 07/26/2011 05058-XHKQFUZ NAIL, 6 OR MORE 10/04/2011 52801-TVLVABR NAIL, 6 OR MORE 01/03/2012 28815-XMWWCPM NAIL, 6 OR MORE 07/14/2012 47628-LOQPGDZ NAIL, 6 OR MORE 10/06/2012 58053-ZKYMNYB NAIL, 6 OR MORE 01/12/2013 05095-MQPLINQ NAIL, 6 OR MORE 04/13/2013 71593-JBSKQKB NAIL, 6 OR MORE 08/13/2013 36218-ILQTQPN NAIL, 6 OR MORE 11/12/2013 27760-WYRFZKK NAIL, 6 OR MORE 02/11/2014 70194-RPKYDLT NAIL, 6 OR MORE 05/10/2014 56462-NJNATWU NAIL, 6 OR MORE 08/09/2014 98305-QBJAVUH NAIL, 6 OR MORE 11/08/2014 69571-FNXMVAI NAIL, 6 OR MORE 03/02/2015 15899-DLFVGDB NAIL, 6 OR MORE 06/01/2015 30982-GPIBMSK NAIL, 6 OR MORE 09/12/2015 12072-BAXJDJM NAIL, 6 OR MORE 12/12/2015 59635-HTBDUCF NAIL, 6 OR MORE 03/12/2016 81261-DBVFSTV NAIL, 6 OR MORE 06/27/2016 65735-NFFIKOE NAIL, 6 OR MORE 11/05/2016 80356-ZQUSNBO NAIL, 6 OR MORE 01/31/2017 05546-LPBDWWO NAIL, 6 OR MORE 05/29/2017 59752-OTRNFFD NAIL, 6 OR MORE 09/18/2017 57507-OTIRDKZ NAIL, 6 OR MORE 12/11/2017 96619-GDIIGGJ NAIL, 6 OR MORE 05/28/2018 23827-HSYHEBQ NAIL, 6 OR MORE 08/28/2018 66800-MTDEMBS NAIL, 6 OR MORE 02/02/2019 59662-AARVEBT NAIL, 6 OR MORE 05/07/2019 38637-USCBXUG NAIL, 6 OR MORE 10/26/2019 88119-NTWYTGX NAIL, 6 OR MORE 01/25/2020 46743-JPCAPYM NAIL, 6 OR MORE 05/19/2020 72049-KUHRLVC NAIL, 6 OR MORE 08/18/2020 01986-BYWFXPH NAIL, 6 OR MORE 11/21/2020 04241-RVVXXWT NAIL, 6 OR MORE 03/08/2021 01339-GQRJHPX NAIL, 6 OR MORE 06/07/2021 20748-YQZWWSQ NAIL, 6 OR MORE 09/07/2021 76252-TZUZGRL NAIL, 6 OR MORE 12/11/2021 42881-YTLDAYI NAIL, 6 OR MORE 03/29/2022 28356-Ibgy Destruction, -11/08/2014 50815-Mhrx Destruction, -08/09/2014 94169-Hoci Destruction, -14 05/10/2014 55705-Izue Destruction, -14 11/12/2013 05989-Iivy Destruction, -14 02/11/2014 96674-Wmdxoqrs Plate 02/11/2014 87652-Lfackeog Plate 11/12/2013 62460-Pjculyal Plate 04/13/2013 11160-Houwiova Plate 05/10/2014 09170-Rjqsusdt Plate 08/09/2014 47803-Uuapymin Plate 01/12/2013 56361-Fgmtrlse Plate 10/06/2012 53425-Ecxikdbt Plate 07/14/2012 59929-Ekkcnhgq Plate 01/03/2012 86668-Gagueblv Plate 10/04/2011 72198-Mjcslbmq Plate 05/03/2011 95348-Flcfljpj Plate 07/26/2011 99981-Eaditlyz Plate 11/08/2014 73653-Noeibavd Plate 06/01/2015 78748-Pdidgsyc Plate 03/02/2015 94888-Sjyxwrbn Plate 10/26/2019 52363-Lnzbbpxs Plate 03/29/2022 15912-Wvvbakun Plate 12/11/2021 15063-Jvcmptwq Plate 09/07/2021 11013-Zrjnenep Plate 02/02/2019 20172-Xtxqevvw Plate 11/21/2020 88324-Tqwlfgcw Plate 01/25/2020 86576-Fwlrmtet Plate Each Additional 07/2014 16506-Jsndfiee Plate Each Additional 06/2015 95085-Jpyvgqzv Plate Each Additional 36589-Inahasvc Plate Each Additional 77570-Opwlwrvq Plate Each Additional 08/2011 49912-Njrigqkg Plate Each Additional 10/2011 68992-Ivtttvfu Plate Each Additional 48123-Kmkuxdcs Plate Each Additional 01/2013 05287-Tmjxlozl Plate Each Additional 81725-Kbrgjatt Plate Each Additional 97585-Ukkpjhfv Plate Each Additional 03/2015 36649-Cwqktrwr Plate Each Additional 39481-Figtrnxp Plate Each Additional 27576-IBGD SKIN LESIONS, 2 TO 4 02/01/20 17 20640-NDGD SKIN LESIONS, 2 TO 4 06/28/19 17 70456-EQVX SKIN LESIONS, 2 TO 4 11/06/19 17 07648-KCDV SKIN LESIONS, 2 TO 4 10/26/19 20 92458-SPZJ SKIN LESIONS, 2 TO 4 05/07/19 20 15688-TBLD SKIN LESIONS, 2 TO 4 02/03/20 19 64680-NGJX SKIN LESIONS, 2 TO 4 08/29/19 19 55946-ZUWN SKIN LESIONS, 2 TO 4 05/28/19 19 70070-AXYB SKIN LESIONS, 2 TO 4 12/12/19 18 60781-PPJW SKIN LESIONS, 2 TO 4 09/19/19 18 78009-IVHB SKIN LESIONS, 2 TO 4 05/29/19 18 90317-IBFW SKIN LESIONS, 2 TO 4 01/25/20 20 19390-CTYQ SKIN LESIONS, 2 TO 4 05/19/19 21 14425-ZXRL SKIN LESIONS, 2 TO 4 11/22/19 21 49350-GLLD SKIN LESIONS, 2 TO 4 08/19/19 21 71932-KHAA SKIN LESIONS, 2 TO 4 03/08/20 21 00609-LWAS SKIN LESIONS, 2 TO 4 09/08/19 22 43410-ASVN SKIN LESIONS, 2 TO 4 06/07/19 22 28646-BAYX SKIN LESIONS, 2 TO 4 12/12/19 22 44247-WOGN SKIN LESIONS, 2 TO 4 03/29/20 98334-FICQ SKIN LESION 03/12/2016 67249-LTLV SKIN LESION 12/12/2015 Insurance Providers Payer Name Payer Address Payer Phone Subscriber Number Group Number Insured Name Patient Relationship to Insured Coverage Start Date Coverage End Date Medicare National Govt Svcs Inc [address] [place] [address] [id number] Mery English Self - patient is the insured 2 [employer] Blue Shield [address] [place] [address] [id number] Mery English Self - patient is the insured Medical (General) History Medical History History ICD Code back, hip, knee pain chicken pox heart condition hypertension mumps measles pacemaker x 3 reflux epilepsy Arthritis - Degenerative Surgical History Surgery Date(Month/Year) cholecystectomy hysterectomy cardiac pacemaker gall stones Hospitalization History Reason Date(Month/Year) congestive heart failure 03/2015 [facility]- Pacemaker 09/28/2019
== END 2024-05-26 16:17 | disposition home or self-care (01) ==
PROVIDERS: PCP Internal Medicine; Visit Provider Internal Medicine
DX: I50.33 Acute on chronic diastolic (congestive) heart failure (principal); I48.19 Other persistent atrial fibrillation; I49.5 Sick sinus syndrome; K29.70 Gastritis, unspecified, without bleeding

== ENCOUNTER → 2024-05-26 14:59 | Outpatient (BNVA) | payer MEDICARE, SELFPAY | PROVIDERS: PCP Internal Medicine; Visit Provider Internal Medicine | DX: I48.0 Paroxysmal atrial fibrillation (principal); I11.0 Hypertensive heart disease with heart failure; I50.33 Acute on chronic diastolic (congestive) heart failure; I48.19 Other persistent atrial fibrillation; I49.5 Sick sinus syndrome; E87.6 Hypokalemia; K29.70 Gastritis, unspecified, without bleeding; K60.2 Anal fissure, unspecified | CPT/HCPCS: 96127; 99212 ==

== ENCOUNTER → 2024-08-10 23:59 | Outpatient (BNV) | payer MEDICARE, SELFPAY | PROVIDERS: PCP Internal Medicine; Visit Provider Internal Medicine | DX: I11.0 Hypertensive heart disease with heart failure (principal); I50.42 Chronic combined systolic (congestive) and diastolic (congestive) heart failure | CPT/HCPCS: G0180 ==

== ENCOUNTER → 2024-09-22 23:59 | Outpatient (BNV) | payer MEDICARE, SELFPAY | PROVIDERS: PCP Internal Medicine; Visit Provider Internal Medicine | DX: I11.0 Hypertensive heart disease with heart failure (principal); I50.42 Chronic combined systolic (congestive) and diastolic (congestive) heart failure | CPT/HCPCS: G0179 ==

== ENCOUNTER → 2024-09-29 23:59 | Outpatient (BNV) | payer MEDICARE, SELFPAY | PROVIDERS: PCP Internal Medicine; Visit Provider Internal Medicine | DX: I11.0 Hypertensive heart disease with heart failure (principal); I50.42 Chronic combined systolic (congestive) and diastolic (congestive) heart failure | CPT/HCPCS: G0179 ==

== ENCOUNTER 2024-11-24 15:18 | Outpatient (AMB) | payer MEDICARE, SELFPAY ==
--- NOTE | 2024-11-24 15:31 | MHC.PC.OV ---
Vital Signs 11/24/24 15:37 Height 5 ft 5 in Weight 142 lb 4 oz BMI 23.7 BP 130/74 Blood Pressure Location Rt brachial Position Sitting Respiration 14 Pulse 65 Pulse Source Pulse Oximeter Pulse Oximetry (%) 99 Oxygen Delivery Method Room Air Intake Visit Reasons: follow up 04/30 Intake Note: Follow up. Had a blister on left leg that pt wants looked at. Saw Dr Cohen a couple weeks ago. Was put on a new water pill or increased dose at Dr Garcia office. Neuropsychologist Required: No Accompanied by: Daughter Allergies cephalexin (From Keflex) Allergy (Severe, Verified 11/24/24 15:52) Unknown ciclopirox (From Loprox) Allergy (Severe, Verified 11/24/24 15:52) Unknown ciprofloxacin Allergy (Severe, Verified 11/24/24 15:52) Unknown hydromorphone (From Dilaudid) Allergy (Severe, Verified 11/24/24 15:52) Unknown tetracycline Allergy (Severe, Verified 11/24/24 15:52) Unknown Tobacco use date assessed: 11/24/24 Fall risk assessment: No Falls in past year Last assessed Fall Risk: 12/02/24 Dental Screening Dental Screen Date: 11/24/24 Did you have a dental visit in the last 12 months?: Yes Did you have a dental problem in the last 6 months where you did not have access to dental care?: No Was dental information given to patient?: Patient has dentist HPI HPI Comments History of Present Illness Details The patient is a 89-year-old female with a past medical history of paroxysmal atrial fibrillation, diastolic CHF, hypertension, pacemaker, chest pain, multiple pulmonary nodules, renal lesion, hypertension, lymphedema presenting for follow up CV: On bumex-increased two weeks ago from 2mg once daily to 2mg twice daily, spironolactone 25 mg daily, Xarelto 20 mg daily, carvedilol and irbesartan. Follows with [facility] EP, Dr Coleman. Following with cardiology at [facility]. Denies cp. Endorses fatigue. Still notes pedal swelling, leg swelling has improved. Seen at [facility] ER in August 2023. Presented with chest pain. ACS rule out. Prior to this she was hospitalized for cellulitis of the neck and noted to be hypokalemic. CT angio of the chest done at this ER visit noted a 1.3 cm right lower lobe pulmonary nodule that had been seen in the past but had increased in size. Chest CT in 6 months was recommended. There was a hyperdense lesion of the left kidney with recommendation for renal protocol MRI or CT. She was treated for hypertensive urgency. GI: Colonoscopy was in 2013. There was a polypectomy done at that time. Her last H&H as of 08/2023 was normal. She had gastritis, gastroenteritis in 12/2023 for which she was treated in [place] [facility]. She has history of anal fissures, rectal pain and has seen colorectal. ROS see HPI PHYSICAL EXAM: GENERAL: Alert and oriented x 3. NAD EYES: EOMI. Anicteric. HENT: Moist mucous membranes. No scleral icterus. LUNGS: Clear to auscultation bilaterally. CARDIOVASCULAR: Regular rate and rhythm. No murmur. No JVD. ABDOMEN: Soft, non-tender +bs EXTREMITIES: 1+ pedal edema SKIN: Thin. Senile purpura. NEUROLOGIC: No focal neurological deficits. Generally weak PSYCHIATRIC: Cooperative. Appropriate mood and affect [facility] Medical History History of echocardiogram GERD (gastroesophageal reflux disease) Epileptic seizure Venous insufficiency Diverticulosis Pacemaker Lymphedema Hypertension Sick sinus syndrome Lumbar degenerative disc disease CHF (congestive heart failure) Atrial fibrillation Hypokalemia Chest pain Multiple pulmonary nodules Renal lesion Surgical History History of colonoscopy with polypectomy History of cholecystectomy History of hysterectomy Family History Mother Hypertension Father Hypertension Cancer Social History Household Members: Other Housing: Assisted Living Facility 75 years or older and lives alone: No Alcohol intake: unknown Patient Tobacco Use Status: Never used Tobacco e-Cigarette/Vaping Use: Never Used service: No Current occupational status: retired Current occupational exposures/hazards: No Cognitive needs: No Hearing needs: Yes Vision needs: Yes Questionnaire PHQ-9 Over the last 2 weeks, how often have you been bothered by any of the following problems? 1. Little interest or pleasure in doing things: not at all 2. Feeling down, depressed, or hopeless: not at all 3. Trouble falling or staying asleep, or sleeping too much: not at all 4. Feeling tired or having little energy: not at all 5. Poor appetite or overeating: not at all 6. Feeling bad about yourself - or that you are a failure or have let yourself or your family down: not at all 7. Trouble concentrating on things, such as reading the newspaper or watching television: not at all 8. Moving or speaking so slowly that other people could have noticed. Or the opposite - being so fidgety or restless that you have been moving around a lot more than usual: not at all 9. Thoughts that you would be better off or of hurting yourself in some way: not at all Total score: 0 Depression Screening Interpretation: Negative Depression Screening Done: Yes 53360 - PHQ-9 Billing: Yes Source: Developed by Drs. Getachew Marrero, Daphne Slater, Elliott Graves and colleagues, with an educational russell from [employer]. Thrive Questionnaire Date Thrive assessed: 11/24/24 I am a: Patient What is your living situation today?: I have a steady place to live Within the past 12 months, did the food you bought not last and you didn't have the money to get more?: Never true Within the past 12 months, did you worry whether your food would run out before you got money to buy more?: Never true Do you have trouble paying for medicines?: No Do you have trouble getting transportation to medical appointments?: No Do you have trouble paying your heating and electricity bill?: No Do you have trouble taking care of your child, family member or friend?: No Do you have trouble with day-to-day activities such as bathing, preparing meals, shopping, managing finances, etc.?: No Are you currently unemployed and looking for a job?: No Are you interested in more education?: No Please select the resources that you would like help with: None Currently or been in a relationship where the following occur: No concerns reported THRIVE Score: 0 AUDIT C Alcohol Use Questionnaire (AUDIT-C) 3. How often do you have six or more drinks on one occasion?: Never Total Score: 0 DANAY-7 AMB Questionnaire DANAY-7 Date DANAY - 7 assessed: 05/26/24 Source: Developed by Drs. Getachew Marrero, Daphne Slater, Elliott Graves and colleagues, with an educational russell from [employer]. Physical exam (Primary Care) Vital Signs: Last Vital Signs Pulse 65 11/24/24 15:37 Resp 14 11/24/24 15:37 BP 130/74 11/24/24 15:37 Pulse Ox 99 11/24/24 15:37 Oxygen Delivery Method Room Air 11/24/24 15:37 BMI result Body Mass Index 23.7 Tobacco/Smoking Status: Tobacco use Status Tobacco use date assessed 11/24/24 11/24/24 15:37 Patient Tobacco Use Status Never used Tobacco 11/24/24 15:32 e-Cigarette/Vaping Use Never Used 11/24/24 15:32 PHQ-9: PHQ-9 Score PHQ-9: Total score 0 11/24/24 16:11 Depression Screening Interpretation: Negative Thrive Assessment: Date of Thrive Assessment Date Thrive assessed 11/24/24 11/24/24 15:55 Currently or been in a relationship where the following occur: No concerns reported Coding Level of Care Code Est Pt Level 4 (15681) Complex EM visit Add On G2211 Diagnoses Primary hypertension I10 Hypertension type: primary hypertension Acute on chronic diastolic congestive heart failure I50.33 Heart failure type: diastolic Heart failure chronicity: acute on chronic Persistent atrial fibrillation I48.19 Atrial fibrillation type: persistent (not longstanding) Multiple pulmonary nodules R91.8 Additional Codes PHQ-9 - 44865 - PHQ-9 Billing: Yes ([id number]) Assessment & Plan Assessment & Plan (1) Hypertension: Code(s): I10 - Essential (primary) hypertension Category: Medical Qualifiers: Hypertension type: primary hypertension Qualified Code(s): I10 - Essential (primary) hypertension (2) CHF (congestive heart failure): Code(s): I50.9 - Heart failure, unspecified Category: Medical Qualifiers: Heart failure type: diastolic Heart failure chronicity: acute on chronic Qualified Code(s): I50.33 - Acute on chronic diastolic (congestive) heart failure (3) Atrial fibrillation: Code(s): I48.91 - Unspecified atrial fibrillation Category: Medical Qualifiers: Atrial fibrillation type: persistent (not longstanding) Qualified Code(s): I48.19 - Other persistent atrial fibrillation (4) Multiple pulmonary nodules: Code(s): R91.8 - Other nonspecific abnormal finding of lung field Category: Medical Plan 89 yo for follow up CHF-euvolemic today. Recent increase in bumex dosing. Will increase potassium to 30meq daily. BP is stable She is faitgue. Slip for tsh and b12 provided for next lab draw GI-GERD stable. Afib-rate controlled. continues AC Orders: Orders TSH reflex Free T4 11/24/24 R41.3 - Other amnesia Vitamin B12 and Folate 11/24/24 R41.3 - Other amnesia Medications: Changed From potassium chloride ER 20 mEq (2 x 10 mEq) PO DAILY 90 days 180 caps 3RF To potassium chloride ER 30 mEq (3 x 10 mEq) PO DAILY 270 caps 3RF 90 days
[2024-11-24 15:37] VITALS: BP 130/74; PULSE 65; RESP 14; O2SAT 99; BMI 23.7
--- OUTSIDE RECORDS SUMMARY | 2024-11-24 16:08 | XMS_ITS | Patient Health Record ---
Author Organization [facility] Address [address] [place] [address] Care Team Providers Care Garment Steamer Name Role Phone Dougie MENDEZ, Shanti Primary Care Provider Unavailable Nicolas Lauren Unavailable [phone] Allergies Allergen (clinical drug ingredient) Drug/Non Drug [...] the morning with food Orally Once a day; Duration: 30 day(s) Active Wellbutrin 100 mg Ac [...] affected area Externally to feet Twice a day; Duration: 30 days Active Spironolactone 25 MG 1 tablet Orally; Duration: 30 day(s) Active Xarelto Active Atorvastatin Calcium 10 MG 1 tablet Oral ly Once a day; Duration: 30 day(s) Active Zonegran 100 MG 1 [...] Problem Status W/U Status Risk Notes Problem Bilateral atherosclerosis of arteries of lower limbs (disorder) ([id number] ) Atherosclerosis of kaibab artery of both lower extremities, with unspecified presence of clinical manifestation (I70.203) Active confirmed Plan Of Treatment Pending Test Test Name Order Date [id number] NAIL, 6 OR MORE 05/03/2011 97753-JEKXVQT NAIL, 6 OR MORE 07/26/2011 59530-ITRKSPH NAIL, 6 OR MORE 10/04/2011 27984-CNVWMEF NAIL, 6 OR MORE 01/03/2012 80689-QQFNFDN NAIL, 6 OR MORE 07/14/2012 81730-PTJYUDW NAIL, 6 OR MORE 10/06/2012 14186-DTLGNJA NAIL, 6 OR MORE 01/12/2013 04385-OKSMCPJ NAIL, 6 OR MORE 04/13/2013 83162-XYYNWFA NAIL, 6 OR MORE 08/13/2013 07231-LMJTTPN NAIL, 6 OR MORE 11/12/2013 56807-KESSZGT NAIL, 6 OR MORE 02/11/2014 38338-PGRDNST NAIL, 6 OR MORE 05/10/2014 79199-FPXLJCY NAIL, 6 OR MORE 08/09/2014 04680-RJXYKEK NAIL, 6 OR MORE 11/08/2014 71309-TIDJENV NAIL, 6 OR MORE 03/02/2015 15612-JKABEVJ NAIL, 6 OR MORE 06/01/2015 69274-KHNCWIM NAIL, 6 OR MORE 09/12/2015 84324-UKEXOAR NAIL, 6 OR MORE 12/12/2015 78659-USNPZZH NAIL, 6 OR MORE 03/12/2016 10164-YKZEQBO NAIL, 6 OR MORE 06/27/2016 13824-HXNOPFG NAIL, 6 OR MORE 11/05/2016 24500-XDXNRTG NAIL, 6 OR MORE 01/31/2017 86830-FILCKWD NAIL, 6 OR MORE 05/29/2017 73644-UQMHYPJ NAIL, 6 OR MORE 09/18/2017 43725-DAFDNPG NAIL, 6 OR MORE 12/11/2017 07485-BZKOTIG NAIL, 6 OR MORE 05/28/2018 73000-WORNVQB NAIL, 6 OR MORE 08/28/2018 87492-FGIMHXH NAIL, 6 OR MORE 02/02/2019 52422-GTOWRNT NAIL, 6 OR MORE 05/07/2019 09879-ARVUYYW NAIL, 6 OR MORE 10/26/2019 02284-EFRXNID NAIL, 6 OR MORE 01/25/2020 22463-PYNXPIQ NAIL, 6 OR MORE 05/19/2020 51666-HXKOYAV NAIL, 6 OR MORE 08/18/2020 88675-SLDTJRS NAIL, 6 OR MORE 11/21/2020 52776-ZULLTQF NAIL, 6 OR MORE 03/08/2021 50909-BNRQFTU NAIL, 6 OR MORE 06/07/2021 60938-IXIYFYK NAIL, 6 OR MORE 09/07/2021 90313-JFCHQHO NAIL, 6 OR MORE 12/11/2021 51008-WTKYCCP NAIL, 6 OR MORE 03/29/2022 01972-Tkdw Destruction, -11/08/2014 14961-Nqkx Destruction, -08/09/2014 61584-Bhpu Destruction, -05/10/2014 62843-Wzlm Destruction, -11/12/2013 21346-Ilej Destruction, -02/11/2014 50576-Ztduwymk Plate 02/11/2014 90588-Nxbitfbv Plate 11/12/2013 16377-Zdvnfrid Plate 04/13/2013 14877-Tznrgujo Plate 05/10/2014 01386-Ayzqfvbr Plate 08/09/2014 80065-Stedijka Plate 01/12/2013 31557-Abmntyqh Plate 10/06/2012 26432-Tshyztyy Plate 07/14/2012 42148-Bzobhtwe Plate 01/03/2012 73587-Zzlwxxiv Plate 10/04/2011 19745-Qhuijjco Plate 05/03/2011 26335-Jlajzryv Plate 07/26/2011 21785-Yrneriog Plate 11/08/2014 02028-Xvrvqdtn Plate 06/01/2015 47698-Ivhdxomo Plate 03/02/2015 95304-Brdqwcuu Plate 10/26/2019 67303-Yfiqkdes Plate 03/29/2022 52224-Rnluirrt Plate 12/11/2021 63525-Zvjkmoph Plate 09/07/2021 87684-Jkvsfchx Plate 02/02/2019 42119-Oacubjty Plate 11/21/2020 34960-Bylffnqw Plate 01/25/2020 68697-Nkegceio Plate Each Additional 07/2014 39164-Tckfgati Plate Each Additional 06/2015 98690-Cypeqfcq Plate Each Additional 08045-Xadunbtv Plate Each Additional 51295-Rkvohryp Plate Each Additional 08/2011 48619-Majbvtej Plate Each Additional 10/2011 14276-Vzsdovdk Plate Each Additional 19523-Uqvsuyky Plate Each Additional 01/2013 31159-Evudomtt Plate Each Additional 39153-Qhnwmkpx Plate Each Additional 22751-Jldxkkue Plate Each Additional 03/2015 77370-Nmfkeyoa Plate Each Additional 67325-Iwgywmuw Plate Each Additional 09959-GDMV SKIN LESIONS, 2 TO 4 02/01/20 17 52306-IZEB SKIN LESIONS, 2 TO 4 06/28/19 17 79299-EINC SKIN LESIONS, 2 TO 4 11/06/19 17 23124-YULH SKIN LESIONS, 2 TO 4 10/26/19 20 95015-LTPA SKIN LESIONS, 2 TO 4 05/07/19 20 38857-NIES SKIN LESIONS, 2 TO 4 02/03/20 19 59900-FRPX SKIN LESIONS, 2 TO 4 08/29/19 19 06461-MZDZ SKIN LESIONS, 2 TO 4 05/28/19 19 58188-JCXD SKIN LESIONS, 2 TO 4 12/12/19 18 40731-SMOX SKIN LESIONS, 2 TO 4 09/19/19 18 77345-OKKA SKIN LESIONS, 2 TO 4 05/29/19 18 60915-XBUD SKIN LESIONS, 2 TO 4 01/25/20 20 87483-MOEV SKIN LESIONS, 2 TO 4 05/19/19 21 32157-JXEY SKIN LESIONS, 2 TO 4 11/22/19 21 30475-CATJ SKIN LESIONS, 2 TO 4 08/19/19 21 94226-PRIS SKIN LESIONS, 2 TO 4 03/08/20 21 29607-PSJM SKIN LESIONS, 2 TO 4 09/08/19 22 21703-QUPV SKIN LESIONS, 2 TO 4 06/07/19 22 60352-SETF SKIN LESIONS, 2 TO 4 12/12/19 22 95139-AHBT SKIN LESIONS, 2 TO 4 03/29/20 22 69689-ICEO SKIN LESION 03/12/2016 30252-DHUD SKIN LESION 12/12/2015 Insurance Providers Payer Name Payer Address Payer Phone Subscriber Number Group Number Insured Name Patient Relationship to Insured Coverage Start Date Coverage End Date Medicare National Govt Svcs Inc [address] [place] [address] [id number] Gila Englishon Self - patient is the insured 2 [employer] [address] [place] [address] [id number] Gila Englishon Self - patient is the insured Medical (General) History Medical History History ICD Code back, hip, knee pain chicken pox heart condition hypertension mumps measles pacemaker x 3 reflux epilepsy Arthritis - Degenerative Surgical History Surgery Date(Month/Year) cholecystectomy hysterectomy cardiac pacemaker gall stones Hospitalization History Reason Date(Month/Year) congestive heart failure 03/2015 [facility]- Pacemaker 09/28/2019
--- OUTSIDE RECORDS SUMMARY | 2024-11-24 16:08 | XMS_ITS | Clinical Summary ---
Author Organization [facility] Address [address] [facility] [address] [place] [address] Phone Care Team Providers Care Quality Auditor Name Role Phone Shanti Constantino MD Primary [...] 09/19/2020 Medications Cholecalciferol (Vitamin D3) 1.25 MG (36933 UT) capsule Take 1 capsule by mouth [...] Type 2 diabetes mellitus 01/10/2022 Atherosclerosis of [place] arteries of the extrem ities 10/17/2021 Hypertension 10/12/2020 Hypertensive disorder 06/18/2013 Resolved Problems Problem Noted Date Diagnosed Date Resolved Date Cough 09/19/2020 09/19/2020 Seizure 09/19/2020 09/19/2020 Sleep apnea 09/19/2020 09/19/2020 Atrial fibrillation 12/31/2014 09/20/19 21 Headache 01/02/2013 09/19/2020 Presence of cardiac pacemaker 01/02/2013 09/19/2020 Restless legs 01/02/2013 09/19/2020 Vitamin D deficiency 07/15/2012 021 Epilepsy 05/29/2012 09/19/2020 Immunizations Immunization Administration Dates Next Due Pfizer SARS-COV-2 03/30/2021,06/26/2020,06/05/19 [...] Due Date Last Done Comments Pneumococcal Vaccine: 50+ Ye ars (1 of 2 - PCV) 09/03/1954 Diabetes: Hemoglobin A1C 02/09/2022 01/25/2021 Diabetes: Ophthalmology Exam 02/09/2022 Diabetes: Pedal Pulse Checked 02/09/2022 Diabetes: Sensory Foot Exam 02/09/2022 Diabetes: Visual Foot Exam 02/09/2022 Influenza Vaccine (#1) 2024 Hepatitis B Vaccine Aged Out No longe [...] 10.0 8.7 - 10.7 mg/dL eGFR Non-Afr [place]ian 78 Vitamin D, 25-OH, Total 63.5 ng/mL Hemoglobin A1C 5.8 4.0 - 6.0 01/25/2021 Historical Provider LAB BLOOD ORDERABLES Cindy l Result from Last 3 Months or Most Recently Relevant to Health Maintenance Insurance [address] [place] [address] [facility] Medicare [facility] Medicare Care Teams Quality Auditor Relationship Specialty Start Date End Date Shanti Constantino MD [address] [place] [address] [address] [place] [address] PCP - General Endocrinology 09/19/20
--- OUTSIDE RECORDS SUMMARY | 2024-11-24 16:08 | XMS_ITS | Data Portability ---
Author Organization [place] [facility] Address [address] [place] [id number] Care Team Providers Care Engineering Model Maker Name Role Phone MARVIN FLORES Primary Care Provider [phone] Assessment Encounter Date Assessment Date Assessment LastModified by Organization Details LastModified Time 02/23/2020 02/23/2020 Overview/History : 84yoF w/pmhx significant for seizure disorder, depression, HTN, afib and hx of PE on Xarelto. She is seen today for neck pain x 3 days. Patient reports waking up with neck pain on Saturday. She denies any trauma. Pain is worse when turning her head. She denies any arm pain, numbness and tingling, weakness or difficulty ambulating. Denies any new bowel and bladder incontinence. Denies fevers or a rash. Denies headache or dizziness. Pt has tried lotion and Tramadol with minimal relief. Exam: Well appearing, well nourished female in nad. Decreased cervical ROM, muscle tenderness, no midline tenderness or step off deformity. Normal heart sounds. Pulses palpable, +3 edema BLE. LSCTA. Abd soft. No rashes. 5/5 motor throughout all 4 extremities DDx considered, but not limited to: Neck strain- likely given muscle tenderness Cervical stenosis- unlikely given no numbness or tingling or signs of myelopathy at this time Doubt fx as no injury, midline tenderness or step off deformity Meningitis- unlikely given no fever, rash or headache osteomyelitis-doub t as the patient is afebrile without any risk factors at this time Work up/Results: none at this time Plan/Discussion: The patient is hemodynamically stable non toxic appearing seen today for non traumatic neck pain. Discussed with pt she likely has a cervical neck strain. She is not demonstrating any radicular symptoms or signs of myelopathy at this time May take her home Tylenol 500mg-1000mg q6hrs and continue Lidocaine lotion as needed. May try heating pad, gentle stretches. We discussed the possibility of a mulsce relaxer but the patient would like to avoid this at this time as it can cause fatigue. If pain does not improve in 48 hours pls call and we will come back out to see patient. Pt verbalized understanding if she should develop severe headache, fever, worsening pain to go to ED. In order to obtain further information and compare any laboratory results/values, I have accessed old patient records. This information was pertinent in my medical decision making today. Proper Personal Protective Equipment (PPE), including gloves, eye protection and masks were donned and doffed appropriately and all equipment cleaned using approved technique with germicidal disposable wipes prior to and after care of this patient according to [facility] infection prevention protocols. Time On Scene with Patient: 00:26:29 [email or web address] Not available 02/24/2020 01:03:45 10/23/2020 10/23/2020 Time On Scene with Patient: 01:18:27 [email or web address] Not available 10/23/2020 11:54:27 03/24/2022 03/24/2022 Overview/History : 86 YO F known to and new to provider PMH of gout and c/o of 2-3 days of gout like sxs in her R wrist. She reports hx of L wrist gout. This feels exactly the same she states. Wrist is swollen and painful odette to move. Tylenol and ice pack provide minimal relief. SHe has taken prednisone in the past she reports for this issue and has tolerated in well. No recent medication changes. No hx of DM. She denies any fever, chills, trauma, numbness/tingling, penetrating injury, spreading redness, abd pain, cp, NVD. No other reported sxs or concerns today. Exam: Vitals: TVSS and afebrile, HR mild loow at 58 but asx for bradycardia Constitutional: 86 yo Well developed, well nourished, pleasant patient in no apparent distress. Upright comfortable in her chair not toxic appearing. Eyes: No swelling, no discharge, sclera / conjunctiva clear ENT: no nasal discharge, no erythema/ exudate noted in oropharynx, moist mucous membranes CV: RRR, 2+ radial pulses bilaterally, no edema and no calf tenderness Pulm: Speaks in full sentences, no increased work of breathing. MS: moves all limbs without deficit, no evidence of trauma Neuro: No focal deficits, A&O x4, + CMS to BL hands Skin: No rash, no redness, no warmth, and no open wounds or penetrating injuries noted Psych: Calm, cooperative, non-manic. Pleasant. DDx considered, but not limited to: Gout - R wrist swelling and pain and hx of this diagnosis. Feels same as previos, will tx for this given appearance and sxs Septic Arthritis - no redness or warmth, no fever, no loss of AROM, no penetrating trauma Fx - no trauma, no bruising and no sig pain at rest, doubtful, XR to fully r/o Arthritis - possible arthritis flair Work up/Results: R wrist XR to eval Plan/Discussion: Acute Gout: -ML cause of sxs at this time given sxs and appearance -Feels just like past attacks and she has hx of this, has taken prednisone in past for this issue and it has worked well ans she has tolerated it well -First dose given on scene, obs for 15 min reveal no adverse rxn, recc dose is 0.5 mg/kg/day per epocrates, she weight 200 lb so approx 40 mg to tx (actual 45 but want to use lower doses given meds she is on to avoid potential med interactions) BP good today as well and w/o sxs -Will taper dose as well to 20 mg last 3 days of tx -Recc timeframe is 5-10 days and will tx in between those -Discussed s/e and risks of tx and she has tolerated this well in the past she reprots so will tx w/ prednisone -Considered colchicine but I do not know renal function and steroids have been effective in past --Cont OTC meds ie Tylenol and ice to help w/ pain -She also states krause juice has helped w/ pain -She will f/u if any med issues or if sxs cont -F/u with PCP -Number [facility] to [facility] [employer] and she will call gabriel if she has not heard form then to ensure she in on the schedule -F/u emergently for any fever, chills, loss of AROM, numbness/tingling, severe pain, severe headache, visual changes, abd pain, NVD, chest pain, SOB Pt is on agreement and verbalizes understanding with the above plans at this time. Pt has no other questions or concerns at this time. All questiosn are answered to the best of my ability. Pt thanks us for our visit today. Pt is left upright in good spirits tahnkful for our visit today [email or web address] Not available 03/24/2022 09:59:40 08/13/2022 08/13/2022 Brief Overview: 86 y/o female known to DH new to provider with hx of HTN, A fib, PE, depression, gout and pacemaker. pt reports for the past 3-4 days she has had dysuria, frequency and urgency. denies hematuria, flank pain, abdominal pain. no fever or chills. she denies cp, sob. she has not taken anything otc. she has prior hx of UTIs. pt denies any recent antibiotic use, no vaginal itching or discharge. she denies nausea, vomiting or diarrhea. pt states otherwise she feels well. Vital Signs: BP 136/64, HR 76, RR 18, T 97.4, O2 96% RA Exam: pleasant 86 y/o female well appearing, alert NAD sitting in chair in her living room. eyes: no injection, icterus or discharge. nose: nares patent no discharge. mouth: moist mucous membranes no erythema, uvula is midline. no cervical lymphadenopathy. lungs: CTAB no wheezes rales or rhonchi. heart: RRR no murmur rubs or gallops. peripheral edema 1+ bilaterally. no calf tenderness, edema negative homans. abdomen: non distended, soft, normal bowel sounds, non tender. no suprapubic tenderness, no CVA tenderness. skin: warm and dry no rashes or lesions. pt ambulating with her walker. strength is normal and equal bilaterally. DDx considered, with rationale: Pyelonephritis: considered but she is afebrile, no CVA tenderness or vomiting. Nephrolithiasis: considered but she denies flank pain and hematuria. Sepsis: considered but she is afebrile, vitals are stable she does not appear septic. Results/ work up: UA: trace blood, no leuks or nitrates. culture pending. Plan: microscopic hematuria/ dysuria: encouraged t to keep hydrated. urine culture is pending. Start Rx Pyridium 200 mg 1 tab PO tid x 2 days. may turn urine orange. follow up with pcp in 3-5 days or sooner prn. go to the ER with worsening symptoms cp, sob, fever, abdominal pain, flank pain, jalil hematuria, vomiting, weakness. Proper Personal Protective Equipment (PPE), including gloves, eye protection and masks were donned and doffed appropriately and all equipment cleaned using approved technique with germicidal disposable wipes prior to and after care of this patient according to [facility]'s infection prevention protocols. Time On Scene with Patient: 00:39:58 [email or web address] Not available 08/13/2022 12:42:14 Plan of Treatment Reminders Order Date Submit Date Provider Last Modified By Organization Details Last Modified Time Details Appointments None recorded. Lab urinalysis, dipstick 2022 023 [email or web address] 5 [facility], [address], [place], [address], 3 12:19:58 culture, urine 2022 023 [facility] (Centralized Electronic Ordering - All Locations), Patient Can Go To The Location Of Their Choice, [id number] 3 07:25:33 BMP + ionized calcium, serum or plasma 2020 021 [facility] (Centralized Electronic Ordering - All Locations), Patient Can Go To The Location Of Their Choice, [id number] 1 14:02:27 urinalysis, dipstick 2020 021 [email or web address] [facility] - Home, [address], [place], [address], 1 11:33:19 culture, urine - Collected by [facility] 2020 021 [facility] (Centralized Electronic Ordering - All Locations), Patient Can Go To The Location Of Their Choice, [id number] 07:26:03 Referral None recorded. Procedures None recorded. Surgeries None recorded. Imaging XR, wrist, 3 or more view - R wrist swelling and pain, doubt fx as no trauma, she has hx of gout. Please assess for posible acute injury or longstandin g arthritis. 2021 022 [facility]), [address], [place], [address], 2 11:55:37 Medication Orders Pyridium 200 mg tablet 2022 023 [facility]acy #[id number], [address] [place], [address], 3 12:20:08 prednisone 20 mg tablet 2021 022 [email or web address] 5 [facility]armacy #[id number], [address] [place], [address], 3 12:03:58 prednisone 10 mg tablet 2021 022 [email or web address] 5 [facility]/Pharmacy #[id number], [address] [place], [address], 3 12:03:54 Zofran 4 mg tablet 2020 021 [email or web address] 5 [facility]/Pharmacy #[id number], [address] [place], [address], 3 12:03:48 Patient TargetsNo targets recorded. Patient Instructions Encounter Date Encounter Id Patient Instructions Last Modified By Organization Details Last Modified Time 02/23/2020 [id number] Take the tylenol as directed for the pain but do not exceed 4000mg in one day Apply a heating pad Perform the gentle stretching we discussed Please seek immediate care if you develop any worsened pain, arm pain, numbness and tingling or weakness Thank you for your visit with [facility] today. We cannot always find the exact cause of your symptoms during your initial visit. Please follow up with your primary care provider or specialist as needed to be rechecked or seek medical attention if your symptoms do not go away or get worse. If you develop any new or worsening symptoms and need after hours care, please go to nearest ER and/or call 911. If you have additional concerns or develop a change in your condition between 8am-10pm, please call [facility] at [phone] to help navigate your care. Not available 02/24/2020 01:03:22 10/23/2020 [id number] nausea and vomit ing: care instructions Not available 10/23/2020 11:33:17 You were seen to day for ongoing nausea x 2 weeks. We attempted a metabolic profile lab set. we were unable to run the lab as we did not have an adequate sample. Since your appetite has been poor for two weeks, please hydrate well with an electrolyte solution such as pedialyte. We also completed a urine dipstick. There is a slight indication of possible urinary tract infection. A urine culture is being sent to the lab, once results are available, we will call you to let you know if you need antibiotics. IT IS MOST LIKELY THAT YOUR PERSISTENT NAUSEA DUE TO THE ADDITION OF TWO NEW MEDICATIONS TWO WEEKS AGO. BOTH spironolactone AND chlorthalidone CAN CAUSE NAUSEA. PLEASE CONTINUE TO FOLLOW YOUR PROVIDER DOSING INSTRUCTIONS. WE DID LOOK INTO AN APPROPRIATE ANTI-EMETIC FOR YOU THIS VISIT TO HELP WITH YOUR NAUSEA. WE DISCUSSED POTENTION SEVERE SIDE-AFFECTS AND CONTRAINDICATIONS WITH RESPECT TO YOUR OTHER MEDICATIONS. ZOFRAN 4 MG 3 X A DAY NEEDED FOR NAUSEA HAS BEEN PRESCRIBED FOR A LIMITED TIME (2 DAYS) TO HELP MANAGE YOUR NAUSEA. PLEASE TAKE ZOFRAN, WAIT 1/2 HOUR, THEN DRINK ELECTROLYTE BASED SOLUTION AND EAT SMALL MEALS. PLEASE DISCUSS WITH YOUR PCP POSSIBLE CHANGES IN YOUR MEDICATIONS THAT WILL NOT CAUSE PERSISTENT NAUSEA. Acute Nausea and Vomiting/Diarrhea BASIC INFORMATION Acute nausea and vomiting often start suddenly, worsen quickly, and last a few hours to 24 hours. Nausea and vomiting most often occur together, although they can occur alone. Cases of acute nausea and vomiting are often from gastrointestinal viruses such as norovirus, rotavirus and influenza. Less often it can be caused by toxins released from food that goes bad as well as some types of bacteria and parasites. Diarrhea can also occur. Your nurse practitioner will conduct a careful history to help determine if you have one of the more serious causes. The cause of your nausea and vomiting may be unknown. INSTRUCTIONS Medicines: 1) Anti-nausea: You may have been given a prescription for an anti nausea medicine such as Zofran, Phenergan or Compazine. These can be used every 6-8 hours to help prevent nausea and vomiting. They can make you sleepy, so do not drive after taking them. Be sure to read all of the drug information from the pharmacy. 2) Tylenol: Low grade fever is common with acute nausea and vomiting. You may use Tylenol, per the recommended dosing on the label, to help control fever. If you have liver disease, do not use Tylenol. Ask your MELT HOUSE DRAG OPERATOR how to address fever if you are concerned about Tylenol use. 3) Anti-diarrheal medicines: These are available [id number], but in some cases are not recommended and can even worsen some cases of intestinal problems. Ask your MELT HOUSE DRAG OPERATOR if you should use them. In children under 12, the only anti-diarrheal that should be considered is Kaopectate. Diet: 1) For the next 12-24 hours, take clear liquids only. No dairy and no caffeinated beverages. After you have not vomited for a complete hour (either with or without the help of the anti-nausea medicine), begin by taking one tablespoon of clear liquid every 15 minutes for one hour. If you are able to tolerate this, you may increase the amount to 2 tablespoons every hour for the next 2 hours. 2) Clear liquids such as gatorade, pedialyte or broth are recommended because of the electrolytes and sugars that will help replenish the losses from vomiting and diarrhea. 3) If you are able to tolerate clear liquids as instructed above, you may begin to take a bland diet. Plain pasta/noodles or toast are suggestions. If you have had diarrhea, bananas, rice and applesauce are suggested as these can help make the stools more solid. Avoid greasy, fatty or fried foods FOLLOW UP You should make an appointment to see your primary care provider within 24 hours or sooner for worsening condition as described below. If you do not have a primary care doctor, you should follow up with one of the PCP suggestions from [facility]. SEEK CARE IMMEDIATELY IF: 1) You are still unable to tolerate any oral intake after 24 hours 2) You have blood in your vomit or stool 3) You develop severe abdominal pain that does not go away after an episode of vomiting or diarrhea 4) You have severe dizziness, heart palpitations or are passing out 5) You develop severe muscle cramps or weakness 6) You have not made urine in over 24 hours If you develop any new or worsening symptoms and need after hours care, please go to nearest ER and/or call 911. If you have additional concerns or develop a change in your condition between 8am-10pm, please call [facility] at [phone] to help navigate your care. Not available 10/23/2020 12:30:42 11/03/2020 [id number] Acute Nausea and Vomiting/Diarrhea BASIC INFORMATION Acute nausea and vomiting often start suddenly, worsen quickly, and last a few hours to 24 hours. Nausea and vomiting most often occur together, although they can occur alone. Cases of acute nausea and vomiting are often from gastrointestinal viruses such as norovirus, rotavirus and influenza. Less often it can be caused by toxins released from food that goes bad as well as some types of bacteria and parasites. Diarrhea can also occur. Your nurse practitioner will conduct a careful history to help determine if you have one of the more serious causes. The cause of your nausea and vomiting may be unknown. INSTRUCTIONS Medicines: 1) Anti-nausea: You may have been given a prescription for an anti nausea medicine such as Zofran, Phenergan or Compazine. These can be used every 6-8 hours to help prevent nausea and vomiting. They can make you sleepy, so do not drive after taking them. Be sure to read all of the drug information from the pharmacy. 2) Tylenol: Low grade fever is common with acute nausea and vomiting. You may use Tylenol, per the recommended dosing on the label, to help control fever. If you have liver disease, do not use Tylenol. Ask your MELT HOUSE DRAG OPERATOR how to address fever if you are concerned about Tylenol use. 3) Anti-diarrheal medicines: These are available [id number], but in some cases are not recommended and can even worsen some cases of intestinal problems. Ask your MELT HOUSE DRAG OPERATOR if you should use them. In children under 12, the only anti-diarrheal that should be considered is Kaopectate. Diet: 1) For the next 12-24 hours, take clear liquids only. No dairy and no caffeinated beverages. After you have not vomited for a complete hour (either with or without the help of the anti-nausea medicine), begin by taking one tablespoon of clear liquid every 15 minutes for one hour. If you are able to tolerate this, you may increase the amount to 2 tablespoons every hour for the next 2 hours. 2) Clear liquids such as gatorade, pedialyte or broth are recommended because of the electrolytes and sugars that will help replenish the losses from vomiting and diarrhea. 3) If you are able to tolerate clear liquids as instructed above, you may begin to take a bland diet. Plain pasta/noodles or toast are suggestions. If you have had diarrhea, bananas, rice and applesauce are suggested as these can help make the stools more solid. Avoid greasy, fatty or fried foods FOLLOW UP You should make an appointment to see your primary care provider within 24 hours or sooner for worsening condition as described below. If you do not have a primary care doctor, you should follow up with one of the PCP suggestions from [facility]. SEEK CARE IMMEDIATELY IF: 1) You are still unable to tolerate any oral intake after 24 hours 2) You have blood in your vomit or stool 3) You develop severe abdominal pain that does not go away after an episode of vomiting or diarrhea 4) You have severe dizziness, heart palpitations or are passing out 5) You develop severe muscle cramps or weakness 6) You have not made urine in over 24 hours If you develop any new or worsening symptoms and need after hours care, please go to nearest ER and/or call 911. If you have additional concerns or develop a change in your condition between 8am-10pm, please call [facility] at [phone] to help navigate your care. Not available 11/03/2020 16:00:01 Reason for Referral None Reported. Results Created Date Observation Date Name Description Value Unit Range Abnormal Flag Note LastModifiedBy Organization Detail LastModifiedTime 10/24/1910/24/2020 URINE CULTU RE specimen description URINE CLEAN CATCH/ MIDSTR EAM Not Available [facility] (Centralized Electronic Ordering - All Locations) Patient Can Go To The Location Of Their Choice, [id number] 10/25/2020 07:26:03 10/24/19 21 10/24/2020 URINE CULTU RE special requests NONE Not Available [facility] (Centralized Electronic Ordering - All Locations) Patient Can Go To The Location Of Their Choice, [id number] 10/25/2020 07:26:03 10/24/19 21 10/25/2020 URINE CULTU RE culture NO GROWTH Not Available [facility] (Centralized Electronic Ordering - All Locations) Patient Can Go To The Location Of Their Choice, [id number] 10/25/2020 07:26:03 10/24/19 21 10/25/2020 URINE CULTU RE report status FINAL 2020 Not Available [facility] (Centralized Electronic Ordering - All Locations) Patient Can Go To The Location Of Their Choice, [id number] 10/25/2020 07:26:03 10/24/19 21 10/23/2020 urina lysis , dipst ick Appearance clear Not Available [facility] [address], [place], [address], 10/23/2020 10:59:18 10/24/1910/23/2020 urina lysis , dipst ick Color yellow Not Available [facility] - Home [address] [place], [address], 10/23/2020 10:59:18 10/24/19 21 10/23/2020 urina lysis , dipst ick Glucose (ref: neg) Neg Not Available [facility] - Home [address] [place], [address], 10/23/2020 10:59:18 10/24/19 21 10/23/2020 urina lysis , dipst ick Bilirubin (ref: neg) Neg Not Available [facility] - Home [address] [place], [address], 10/23/2020 10:59:18 10/24/1910/23/2020 urina lysis , dipst ick Ketones (ref: neg) Neg Not Available [facility] [address], [place], [address], 10/23/2020 10:59:18 10/24/1910/23/2020 urina lysis , dipst ick Specific [place] (ref: 1.003 - 1.035) 1.010 Not Available [facility] [address] [place], [address], 10/23/2020 10:59:18 10/24/19 21 10/23/2020 urina lysis , dipst ick Blood (ref: neg) Neg Not Available [facility] [address] [place], [address], 10/23/2020 10:59:18 10/24/19 21 10/23/2020 urina lysis , dipst ick pH (ref: 5-7) 7.0 Not Available [facility] [address] [place], [address], 10/23/2020 10:59:18 10/24/19 21 10/23/2020 urina lysis , dipst ick Protein (ref: neg) Not Available [facility] [address] [place], [address], 10/23/2020 10:59:18 10/24/19 21 10/23/2020 urina lysis , dipst ick Nitrites (ref: neg) negati ve Not Available [facility] [address] [place], [address], 10/23/2020 10:59:18 10/24/19 21 10/23/2020 urina lysis , dipst ick Leukocytes (ref: neg) + Not Available [facility] [address] [place], [address], 10/23/2020 10:59:18 08/14/19 23 08/14/2022 URINE CULTU RE specimen description CLEAN CATCH (URINE ) Not Available [facility] (Centralized Electronic Ordering - All Locations) Patient Can Go To The Location Of Their Choice, 08/15/2022 07:25:33 08/14/1908/14/2022 URINE CULTU RE special requests NONE Not Available [facility] (Centralized Electronic Ordering - All Locations) Patient Can Go To The Location Of Their Choice, 08/15/2022 07:25:33 08/14/1908/15/2022 URINE CULTU RE culture <10,00 0 COL/ML abnormal Not Available [facility] (Centralized Electronic Ordering - All Locations) Patient Can Go To The Location Of Their Choice, [id number] 08/15/2022 07:25:33 08/14/19 23 08/15/2022 URINE CULTU RE report status FINAL 2022 Not Available [facility] (Centralized Electronic Ordering - All Locations) Patient Can Go To The Location Of Their Choice, [id number] 08/15/2022 07:25:33 08/14/19 23 08/13/2022 urina lysis , dipst ick Appearance clear Not Available [facility] - [facility] [address], [place], [address], 08/13/2022 12:14:29 08/14/19 23 08/13/2022 urina lysis , dipst ick Color yellow Not Available [facility] [address], [place], [address], 08/13/2022 12:14:29 08/14/19 23 08/13/2022 urina lysis , dipst ick Glucose (ref: neg Neg Not Available [facility] [address] [place], [address], 08/13/2022 12:14:29 08/14/19 23 08/13/2022 urina lysis , dipst ick Bilirubin (ref: neg) Neg Not Available [facility] [address], [place], [address], 08/13/2022 12:14:29 08/14/19 23 08/13/2022 urina lysis , dipst ick Ketones (ref: neg) Neg Not Available [facility] [address], [place], [address], 08/13/2022 12:14:29 08/14/19 23 08/13/2022 urina lysis , dipst ick Specific [place] (ref: 1.003 - 1.035) 1.010 Not Available [facility] [address], [place], [address], 08/13/2022 12:14:29 08/14/19 23 08/13/2022 urina lysis , dipst ick Blood (ref: neg) Not Available [facility] [address], [place], [address], 08/13/2022 12:14:29 08/14/19 23 08/13/2022 urina lysis , dipst ick pH (ref: 5.0-7.0) 6.5 Not Available [facility] [address], [place], [address], 08/13/2022 12:14:29 08/14/19 23 08/13/2022 urina lysis , dipst ick Protein (ref: neg) Neg Not Available [facility] [address], [place], [address], 08/13/2022 12:14:29 08/14/19 23 08/13/2022 urina lysis , dipst ick Urobilinogen (ref: 0.2-1.0) 0.2 Not Available [facility] [address] [facility], [place], [address], 08/13/2022 12:14:29 08/14/19 23 08/13/2022 urina lysis , dipst ick Nitrites (ref: neg) negati ve Not Available [facility] [address] [place], [address], 08/13/2022 12:14:29 08/14/19 23 08/13/2022 urina lysis , dipst ick Leukocytes (ref: neg) Neg Not Available [facility] [address] [place], [address], 08/13/2022 12:14:29 08/14/19 23 08/13/2022 urina lysis , dipst ick Location [facility], [address] [place] [address], [id number] Not Available [facility] [address] [place], [address], 08/13/2022 12:14:29 03/25/20 22 03/25/2022 XR, wrist , 3 or more view WRIST COMPLE TE MIN 3V, RIGHT FINDIN GS: No acute fractu re, disloc ation or destru ctive bony proces s. Osteop enia. Mild degene rative change s. Chondr ocalci nosis of the TFCC. Mild diffus e soft tissue swelli ng. Consid er follow -up or CT as clinic campbell goldsmith CONCLU [place]UB[place]: No acute osseou s abnorm ality. Mild diffus e soft tissue swelli ng. ELECTR ONICAL LY SIGNED BY YO CANNON M.D. 2021 11:44: 35 AM EST. WRIST COMPLE TE MIN 3V, RIGHT Result s: No acute fractu re, disloc ation or destru ctive bony proces s. Osteop enia. Mild degene rative change s. Chondr ocalci nosis of the TFCC. Mild diffus e soft tissue swelli ng. Consid er follow -up or CT as clinic [facility]oldsmith Conclu shubham: No acute osseou s abnorm ality. Mild diffus e soft tissue swelli ng. Electr onical ly signed by YO CANNNO M.D. 2021 11:44: 35 AM EST. [email or web address] [employer] [address], [address], 03/25/2022 13:29:47 Result Notes Documentation Provider Name and Address Organization Details Recorded Time Xr, Wrist, 3 Or More View : WRIST COMPLETE MIN 3V, RIGHT FINDINGS: No acute fracture, dislocation or destructive bony process. Osteopenia. Mild degenerative changes. Chondrocalcinosis of the TFCC. Mild diffuse soft tissue swelling. Consider follow-up or CT as clinically warranted CONCLUSION: No acute osseous abnormality. Mild diffuse soft tissue swelling. ELECTRONICALLY SIGNED BY YO CANNON M.D. 03/25/2022 11:44:35 AM EST. WRIST COMPLETE MIN 3V, RIGHT Results: No acute fracture, dislocation or destructive bony process. Osteopenia. Mild degenerative changes. Chondrocalcinosis of the TFCC. Mild diffuse soft tissue swelling. Consider follow-up or CT as clinically warranted Conclusion: No acute osseous abnormality. Mild diffuse soft tissue swelling. Electronically signed by YO CANNON M.D. 03/25/2022 11:44:35 AM Amira Waters [place], [place] [facility] 03/25/2022 13:29:47 Problems Name Problem SNOMED Code Status Onset Date Resolution Date Notes Provider Name and Address Organization Details Recorded Time Hypertensive disorder 28329452 Active 2018 ELSA AGARWAL NP [address] [facility] [place], [address], [place] [facility] 9 13:10:56 Problem Notes None recorded. Procedures Surgical History Date Name Laterality Status Provider Name and Address Organization Details Recorded Time 022 Medication Review completed JONELLE Hernandez [address], [place], [address], [place] [facility] 03/24/2022 09:46:03 021 Venipuncture - DH completed Annette Li NP [address], [place], [address], [place] [facility] 10/23/2020 12:44:17 cardiac pacemaker procedure completed JONELLE Hernandez [address], [place], [address], [place] [facility] 03/24/2022 09:22:33 Imaging Results None recorded. Procedure Notes None recorded. Medical Equipment None Reported. Allergies Allergen ID Allergen Name Allergen Category Reaction Reaction Severity Criticality Documentation Date Start Date Code Code System Note Provider Name and Address Organization Details Recorded Time 274465 ciproflox acin medicatio n Not available Not available Not available 03/24/2022 2551 RxNorm JONELLE Sorenson [address] [facility] [place], [address], [place] [facility] 2 09:18:14 257799 Loprox medicatio n Not available Not available Not available 03/24/2022 78901 5 RxNorm JONELLE Sorenson [address] [facility] [place], [address], [place] [facility] 2 09:18:19 78631 Substance with tetracycl ine structure (substanc e) medicatio n Not available Not available Not available 04/03/2019 35694 8001 SNOMED ELSA AGARWAL , [employer] [address], [facility] [place], [address], [place] [facility] 9 13:10:12 62298 Keflex medicatio n Not available Not available Not available 04/03/2019 87128 7 RxNorm ELSA AGARWAL , [employer] [address], [facility] [place], [address], [place] [facility] 9 13:10:21 02560 Dilaudid medicatio n Not available Not available Not available 04/03/2019 21043 3 RxNorm ELSA AGARWAL , [employer] [address], [facility] [place], [address], [place] [facility] 9 13:10:29 Medications Name Sig Start Date Stop Date Status Note LastModified by Organization Details LastModified Time potassium chloride ER 10 mEq capsule,ext ended release 03/24 completed Not Available Not Available Not Available carvedilol 6.25 mg tablet 10/23 completed Not Available Not Available Not Available prednisone 10 mg tablet 40 mg PO administe red on scene. Time administe red: 930 am 08/13 completed Not Available Not Available Not Available carvedilol 12.5 mg tablet TAKE 1 TABLET BY MOUTH 2 TIMES A DAY,X30 DAYS, DOSE INCREASE 03/24 completed Not Available Not Available Not Available atorvastati n 10 mg tablet TAKE 1 TABLET BY MOUTH EVERY DAY 03/24 completed Not Available Not Available Not Available valacyclovi r 1 gram tablet TAKE 1 TABLET(S) EVERY 12 HOURS BY ORAL ROUTE FOR 2 DAYS. 02/22 completed Not Available Not Available Not Available phenazopyri dine 200 mg tablet TAKE 1 TABLET 3 TIMES A DAY BY ORAL ROUTE DIRECTED FOR 2 DAYS. active Not Available Not Available No t Available ondansetron HCl 4 mg tablet TAKE 1 TABLET BY MOUTH EVERY 8 HOURS NEEDED FOR NAUSEA 08/13 completed Not Available Not Available Not Available prednisone 20 mg tablet TAKE 2 TABLETS ON 03/25, 03/26, & 03/27. TAKE 1 TABLET ON 03/28, 03/29, & 03/30. 08/13 completed Not Available Not Available Not Available penicillin V potassium 500 mg tablet TAKE 1 TABLET BY MOUTH TWICE A DAY FOR 7 DAYS 10/23 completed Not Available Not Available Not Available chlorthalid one 25 mg tablet TAKE 1 TABLET BY MOUTH 1 TIME EACH DAY. active Not Available Not Available No t Available amlodipine 5 mg tablet TAKE 1 TABLET BY MOUTH EVERY DAY 03/24 completed Not Available Not Available Not Available allopurinol 100 mg tablet 03/24 completed Not Available Not Available Not Available ciprofloxac in 500 mg tablet TAKE 1 TABLET BY MOUTH EVERY 12 HOURS FOR 7 DAYS 03/24 completed Not Available Not Available Not Available sulfamethox azole 800 mg-trimetho prim 160 mg tablet TAKE 1 TABLET BY MOUTH EVERY 12 HOURS FOR 7 DAYS 03/24 completed Not Available Not Available Not Available omeprazole 40 mg capsule,del ayed release TAKE 1 CAPSULE BY MOUTH 2 TIMES A DAY X30 DAYS, K21.9 active Not Available Not Available No t Available tramadol 50 mg tablet TAKE 1 TABLET BY MOUTH TWICE A DAY 03/24 completed Not Available Not Available Not Available spironolact one 25 mg tablet TAKE 1 TABLET BY MOUTH EVERY DAY active Not Available Not Available No t Available bupropion HCl SR 100 mg tablet,12 hr sustained-r elease TAKE 1 TABLET BY MOUTH ONCE DAILY FOR 90 DAYS 08/13 completed Not Available Not Available Not Available zonisamide 100 mg capsule TAKE 3 CAPSULES BY MOUTH EVERY OTHER DAY ALTERNATI NG WITH 4 CAPSULES EVERY OTHER DAY active Not Available Not Available No t Available econazole nitrate 1 % topical cream PLEASE SEE ATTACHED FOR DETAILED DIRECTION S 03/24 completed Not Available Not Available Not Available erythromyci n 5 mg/gram (0.5 %) eye ointment 04/03 completed Not Available Not Available Not Available triamcinolo ne acetonide 0.1 % topical ointment PLEASE SEE ATTACHED FOR DETAILED DIRECTION S 03/24 completed Not Available Not Available Not Available irbesartan 300 mg-hydrochl orothiazide 12.5 mg tablet 03/24 completed Not Available Not Available Not Available amoxicillin 250 mg capsule 02/22 completed Not Available Not Available Not Available ammonium lactate 12 % topical cream APPLY TO AFFECTED AREA TWICE DAILY ON FEET FOR 30 DAYS 03/24 completed Not Available Not Available Not Available furosemide 20 mg tablet TAKE 1 TABLET BY MOUTH TWICE A DAY 03/24 completed Not Available Not Available Not Available azelastine 137 mcg (0.1 %) nasal spray ADMINISTE R 2 SPRAYS IN EACH NOSTRIL 2 TIMES A DAY 03/24 completed Not Available Not Available Not Available ipratropium bromide 42 mcg (0.06 %) nasal spray USE 2 SPRAYS INTO EACH NOSTRIL 3 TIMES A DAY active Not Available Not Available No t Available fluticasone propionate 50 mcg/actuati on nasal spray,suspe nsion ADMINISTE R 2 SPRAYS INTO BOTH NOSTRILS TWICE A DAY 03/24 completed Not Available Not Available Not Available clotrimazol e 1 % topical cream PLEASE SEE ATTACHED FOR DETAILED DIRECTION S 03/24 completed Not Available Not Available Not Available dofetilide 500 mcg capsule 03/24 completed Not Available Not Available Not Available ipratropium bromide 21 mcg (0.03 %) nasal spray USE 2 SPRAYS IN EACH NOSTRIL TWICE A DAY active Not Available Not Available No t Available irbesartan 300 mg tablet TAKE 1 TABLET BY MOUTH EVERY DAY active Not Available Not Available No t Available amoxicillin 875 mg-potassiu m clavulanate 125 mg tablet TAKE 1 TABLET BY MOUTH EVERY 12 HOURS FOR 7 DAYS 03/24 completed Not Available Not Available Not Available tobramycin 0.3 %-dexametha sone 0.1 % eye drops,suspe nsion APPLY ONE DROP INTO RIGHT EYE FOUR TIMES A DAY FOR 7 DAYS. 03/24 completed Not Available Not Available Not Available neomycin-po lymyxin-hyd rocort 3.5 mg-10,000 unit/mL-1 % ear drops,susp 04/03 completed Not Available Not Available Not Available ciclopirox 0.77 % topical cream PLEASE SEE ATTACHED FOR DETAILED DIRECTION S 03/24 completed Not Available Not Available Not Available Klor-Con M10 mEq tablet,exte nded release TAKE 2 TABLETS BY MOUTH EVERY DAY 03/24 completed Not Available Not Available Not Available valsartan 320 mg-hydrochl orothiazide 12.5 mg tablet 03/24 completed Not Available Not Available Not Available cholecalcif andie (vitamin D3) 1,250 mcg (50,000 unit) capsule TAKE 1 CAPSULE BY MOUTH EVERY 2 WEEKS 03/24 completed Not Available Not Available Not Available cholecalcif andie (vitamin D3) 50 mcg (2,000 unit) capsule TAKE 1 CAPSULE BY MOUTH EVERY 2 WEEKS 03/24 completed Not Available Not Available Not Available Xarelto 20 mg tablet TAKE 1 TABLET BY MOUTH EVERY EVENING active Not Available Not Available No t Available potassium chloride ER 20 mEq tablet,exte nded release TAKE 1 TABLET BY MOUTH 2 TIMES A DAY,X2 DAYS 03/24 completed Not Available Not Available Not Available Breo Ellipta 200 mcg-25 mcg/dose powder for inhalation 04/03 completed Not Available Not Available Not Available Vitals Date Recorded Oxygen saturation Oxygen saturation in Arterial blood by Pulse oximetry Heart rate Respiratory rate Body temperature Systolic And Diastolic Provider Name and Address Organization Details Last Updated DateTime 3 96 % 96 % 76 /min 18 /min 97.4 [degF] 130/64 mm[Hg] Not Available [facility] 3 12:03:37 Date Recorded Oxygen saturation Oxygen saturation in Arterial blood by Pulse oximetry Respiratory rate Body temperature Heart rate Systolic And Diastolic Provider Name and Address Organization Details Last Updated DateTime 1 99 % 99 % 20 /min 98 [degF] 68 /min 144/80 mm[Hg] Not Available [facility] 1 10:41:44 Date Recorded Body temperature Heart rate Oxygen saturation Oxygen saturation in Arterial blood by Pulse oximetry Respiratory rate Systolic And Diastolic Provider Name and Address Organization Details Last Updated DateTime 1 97.9 [degF] 80 /min 96 % 96 % 18 /min 140/82 mm[Hg] Not Available [facility] 1 16:05:09 Date Recorded Body temperature Respiratory rate Heart rate Oxygen saturation Oxygen saturation in Arterial blood by Pulse oximetry Systolic And Diastolic Provider Name and Address Organization Details Last Updated DateTime 0 99.3 [degF] 16 /min 77 /min 97 % 97 % 146/98 mm[Hg] Not Available [facility] 0 15:57:01 Date Recorded Oxygen saturation Oxygen saturation in Arterial blood by Pulse oximetry Heart rate Respiratory rate Body temperature Systolic And Diastolic Provider Name and Address Organization Details Last Updated DateTime 2 95 % 95 % 58 /min 18 /min 98.9 [degF] 138/66 mm[Hg] Not Available [facility] 2 09:22:19 Social History Question Answer Notes LastModified by Organizat ion Details LastModified Time Tobacco Smoking Status Former Smoker ELSA AGARWAL, ALTHEA [address], [place], [address], [place] [facility] 04/03/2019 13:14:38 Do You Have An Advance Directive? Yes Information not available 04/03/2019 What Is Your Code Status? Full Code Information not available 04/03/2019 Drugs Abused None Information not available 04/03/2019 How Many Days In The Past Year Have You Had A Heavy Drinking Consumption (4+ Female, 5+ Male)? 0 Information not available 04/03/2019 Within The Past 12 Months, Has It Happened That The Food You Bought Just Didn't Last And You Didn't Have Money To Get More. Normal Information not available 04/03/2019 Within The Past 12 Months, Have You Worried That Your Food Would Run Out Before You Got Money To Buy More. Yes Information not available 04/03/2019 Fall Risk: Do You Feel Unsteady When Standing Or Walking? Yes Information not available 04/03/2019 Marital Status Informatio n not available 04/03/2019 What Was The Date Of Your Most Recent Tobacco Screening? 04/03/2019 Information not available 04/04/2019 Sex: Unknown Functional Status None recorded. Mental Status None recorded. Family History Relationship Description Onset Age of this Age Resolved Age Notes LastModified by Organization Details LastModified Time Mother Hypertensive disorder [email or web address] Not available 04/03 13:14:30 Medical History Condition Response Coronary Artery Disease N COPD N Depression Y Cancer N Stroke N High Cholesterol N Kidney Disease N Diabetes N Asthma N Pulmonary Embolism Y Hypertension Y Gynecological HistoryNo gynecological history recorded. Obstetrics History GPAL:G 0 P 0 0 0 0 Past Encounters Encounter ID Performer Location Encounter Start Date Encounter Closed Date Diagnosis/Indication Diagnosis SNOMED-CT Code Diagnosis ICD10 Code Diagnosis Note [id number] ELSA AGARWAL, [employer] [facility] [address] [facility] [place] [address] 04/03/2019 13:07:47 04/06/2019 13:41:05 Gout 42574489 M10.9 Pain of left wrist 87383 44395 28902 M25.532 [id number] JONELLE BARBER [facility] [address] [facility] [place] [address] 02/23/2020 15:48:28 02/24/2020 14:16:21 Neck pain 42491627 M54.2 [id number] Annette Li NP [facility] [address] [facility] [place] [address] 10/23/2020 10:37:52 10/24/2020 14:28:08 Acute vomiting 31819441 R11.10 Overview/H istory: Patient is an 85 year old alert female who presents with chief complaint of persistent nausea x 2 weeks. Patient recently had medication adjustment by her providers with input from nephrologi st to better regulate her HTN/lympha denopathy. she was prescribed both Aldactone and Chlorthali done. Since starting the medication s 2 weeks ago, she has had persistent nausea and dry heaves. She has not been able to take the medication s each day as prescribed and her providers are aware. Patient does have an appointmen t tomorrow to follow up. Exam: Afebrile 98.0. Trachea midline, no JVD distention . HRR, paced at a rate of 68. 2-3+ LE dependent edema, patient is not wearing compressio n stockings. Moist mucous membranes, no lymphadeno cristel. LSCTA bilaterall y, no work of breathing. No CVA tenderness , no suprapubic tenderness . Grossly normal neuro exam. DDx considered , but not limited to:Medicat ion induced nausea/zoe e effect likely given addition of new medication to regime and timing/ons et of nauseaUTI considered , + leukocytes on dipstickPy elonephrit is considered , no CVA tenderness Viral GI considered Work up/Results : Exam. Attempted BMP x 2, patient is a difficult lab stick, unable to draw enough blood to complete metabolic profile.Ur ine dipstick, + leukocytes Urine culture to lab Plan/Discu ssion: Follow up with urine culture, prescribe abx if indicated. Zofran for nausea 4 mg TID, two day supply prescribed . Discussed potential adverse side affects and discussed interactio ns with provider negotiations director. Patient agrees to monitor for side affects and cease Zofran STAT in event of palpitatio ns, chest pain, SOB, worsening symptoms. Patient will follow with PCP in am. A copy of visit attached to PCP. Discussed acute s/s to report to ED. Patient able to reiterate all discussed. No questions at this time.Prope r Personal Protective Equipment (PPE), including gloves, eye protection and masks were donned and doffed approprashly mcintyre and all equipment cleaned using approved technique with germicidal disposable wipes prior to and after care of this patient according to [facility] infection prevention protocols. In order to obtain further informatio n and compare any laboratory results/va lues, I have accessed old patient records. This informatio n was pertinent in my medical decision making today. Nausea [id number] R11.0 [id number] Annette Li NP [facility] [address] [place] [address] 11/03/2020 15:57:15 11/07/2020 18:09:05 Acute vomiting 14921058 R11.10 Overview/H istory: Patient is an 85 year old alert female who presents. Patient chief complaint this visit is persistent for weeks since diuretic medication adjustment . Patient was seen by 10/23/2020 for suspicion of UTI; results proved benign. Currently, patient is on a new Colace regime which alleviated her constipati on issues as of late; however the nausea remains persistent . Patient has a referral underway for a GI provider through her PCP. She was prescribed Zofran by her PCP and by last visit. A pill count reveals that she has only taken several doses. Exam: Afebrile 97.9. Trachea midline, no JVD distention . HRR 80, S1, S2. TRace non pitting LE edema; much improved from previous visit. Moist mucous membranes, no lymphadeno cristel. LSCTA bilaterall y, no work of breathing. Abdomen SNT, obese, + bowel sounds x 4 quadrants. No CVA tenderness , no suprapubic tenderness . Grossly normal neuro exam. DDx considered , but not limited to:Medicat ion induced nausea/zoe e effect likely given addition of new medication to regime and timing/ons et of nauseaUTI considered , negative workup 10/23/2020G ERD considered Constipati on considered , patient started colace regime Plan/Discu ssion: Patient will resume taking Zofran Q 8 hours for nausea; scheduled doses. No RX provided as patient has ample supply of Zofran already. Patient will continue taking Colace 2 tabs Q day to avoid constipati on. Simple, bland meals for now. Follow up with GI provider YVAN. Discussed acute s/s to go to ED, Patient able to reiterate all discussed. No questions at this time. Med rec completed. Proper Personal Protective Equipment (PPE), including gloves, eye protection and masks were donned and doffed jose mcintyre and all equipment cleaned using approved technique with germicidal disposable wipes prior to and after care of this patient according to [facility]'s infection prevention protocols. History of urinary tract infection [id number] 107 Z87.440 [id number] JONELLE Wynne [facility] [address] [place] [address] 03/24/2022 08:15:20 03/25/2022 19:42:39 Acute gout 622535828 M10.9 [id number] JONELLE Decker [facility] [address] [place] [address] 08/13/2022 11:59:53 08/15/2022 11:38:17 Microscopic hematuria 205125911 R31.29 Dysuria 94177207 R30.0 Essential hypertension 60466744 I10 Status of condition: Stable. Testing/Re sults: BP 136/64 on scene. Discussion : BP controlled on current medication regimen. pt is asymptomat ic. Plan, Medication Management & Follow-up recommenda tions: follow up with pcp as scheduled. go to the ER with worsening symptoms cp, sob, dizziness, weakness, edema, HAs, vision changes. Atrial fibrillation 4941 6004 I48.91 Status of condition: Stable. Testing/Re sults: RRR on exam today. Discussion : A fib controlled on current regimen. she is asymptomat ic. Plan, Medication Management & Follow-up recommenda tions: follow up with pcp as scheduled. go to the ER with worsening symptoms cp, sob, dizziness, palpitatio ns, weakness, lethargy. Health Concerns Section Related Observation LastModified by Organization Detai ls LastModified Time None Recorded Concern Status LastModified by Organization Details LastModified Time None Recorded Advance Directives Directive Y: Payers Insurance Date Sequence Insurance Name Policy Number Policy Grant Covered Member ID Grant Member ID Guarantor Name 03/23/2022 2 [place] Mery English [id number] Mery Caryus 08/21/2022 2 [place] [id number] Mery English [id number] Mery Caryus 04/03/2019 1 [place] Mery English [id number] Mery Amador 04/03/2019 1 *SELF PAY* Mery English [id number] Mery Caryus 03/23/2022 2 [place] Mery English [id number] Mery English 08/13/2022 1 [place] Mery English [id number] Mery English OBGyn Episode No OBEpisode recorded.
--- OUTSIDE RECORDS SUMMARY | 2024-11-24 16:08 | XMS_ITS | Continuity of Care Document ---
Author Organization [facility] [address] [facility] [place] [address] Phone [phone] Care Team Providers Care Superintendent [employer] Name Role Phone Shanti Constantino M.D. Care Team Informati on Clinic Coordinator [phone] Problems Active Problems Provider Date Essential hypertension Juwan Alvarado Onset: 01/10/2022 Chronic depression Shanti Constantino M.D. Onset: 01/10/2022 Seizure Shanti Constantino M.D. Ons et: 01/10/2022 Degenerative joint disease i nvolving multiple joints Shanti Constantino M.D. Onset: 01/10/2022 Secondary hyperparathyroidism Shanti horton M.D. Onset: 01/10/2022 Gastroesophageal reflux disease Shanti Harper M.D. Onset: 01/10/2022 Messina's esophagus Shanti Constantino M.D. Onset: 01/10/2022 Polyp of colon Shanti Constantino M.D. Ons et: 01/10/2022 Subclinical hypothyroidism Shanti ivan M.D. Onset: 01/10/2022 Gout Shanti Constantino M.D. Ons et: 01/10/2022 Osteoarthritis of knee Juwan Alvarado Onset: 01/10/2022 Obstructive sleep apnea syndrome Shanti Mei M.D. Onset: 01/10/2022 Type 2 diabetes mellitus Shanti Constantino M.D. Onset: 01/10/2022 Chronic diastolic heart failure Shanti Harper M.D. Onset: 01/10/2022 Multiple nodules of lung Shanti Constantino M.D. Onset: 01/10/2022 Chronic cough Shanti Constantino M.D. Ons et: 01/10/2022 Obesity Shanti Constantino M.D. Ons et: 01/10/2022 Acquired lymphedema of lower extremity Shanti Constantino M.D. Onset: 01/10/2022 Sick sinus syndrome Shanti Constantino M.D. Onset: 01/10/2022 Paralysis of diaphragm Juwan Alvarado Onset: 01/10/2022 Chronic atrial fibrillation Shanti bush M.D. Onset: 05/03/2023 Social History Type Date Description Comments Sex Female Sex Unknown Marital Status Legal Status: Lives With Alone Work Status Retired ETOH Use Denies alcohol use Tobacco Use Start: Unknown End: Patient is a former smoker Allergies and adverse reactions Active Allergies Criticality Reaction Severity Comments Date Tetracycline Unable to assess criticality 01/10/2022 Dilaudid Unable to assess criticality 01/10/2022 Keflex Unable to assess criticality 01/10/2022 Cipro Unable to assess criticality 01/10/2022 Medications Active Medications SIG Qnty Indications Order ing Provider Date [id number] Tablets 1 by mouth every day in evening 90tabs Shanti Constantino M.D. 10/15/2023 Amlodipine Nlveosou5mr Tablets 1 by mouth every day 90tabs Shanti Constantino M.D. 09/12/[address] Take 1 Capsule By Mouth Once A Day Unknown Wzmxngolxtgssu50bj Tablets Take 1 Tablet By Mouth Every Day Unknown Twhdgzr88rc Tablets Take 1 Tablet By Mouth Every Evening Unknown Ssvaitelwt241ny Capsules Take 3 Capsules By Mouth AT Bedtime Alternating With 4 Capsules Unknown Tramadol TNZ32as Tablets Take 1 Tablet By Mouth Twice A Day as Needed 60tabs M19.90 Shanti Constantino M.D. Ammonium Tkbnlcy74% Cream Apply To Affected Area Twice Daily On Feet For 30 Days Leonidas Tevin, DPM Vitamin D (Ergocalciferol)5000 0Unit Capsules 1 cap by mouth every 3 weeks 14caps Shanti Constantino M.D. Atorvastatin Eemfcdy61ut Tablets 1 by mouth every day 30tabs Shanti Constantino M.D. Odwyel080fi Capsules 1 by mouth every day as needed Shanti Constantino M.D. Flonase Allergy Fiaeej22zud/Act Suspension 1 pump both nostrils twice a day as needed 9.900ml Shanti Constantino M.D. Izrdpnu12MM/Scoop Powder take daily prn Shanti Constantino M.D. Vital Signs Date Vital Result Comment 10/14/2023 10:42am Weight 175.00 lb Results Test Acquired Date Facility Test Result H/L Range Note NT-proBNP 10/14/2023 [facility] NT-proBNP 973 pg/mL High 0-738 1 Glucose Fingerstick 10/14/2023 Inhouse Glucose Fingerstick 99 Hemoglobin A1c 10/14/2023 Inhouse Hemoglobin A1c 5.7% Comp. Metabolic Panel (14) 10/14/2023 [facility] Glucose 97 mg/dL 70-99 BUN 11 mg/dL 8-27 Creatinine 0.73 mg/dL 0.57-1.0 0 eGFR 80 mL/min/1.73 >59 BUN/Creatinine Ratio 15 12-28 Sodium 139 mmol/L 134-144 Potassium 3.4 mmol/L Low 3.5-5.2 Chloride 103 mmol/L 96-106 Carbon Dioxide, Total 20 mmol/L 20-29 Calcium 10.2 mg/dL 8.7-10.3 Protein, Total 5.9 g/dL Low 6.0-8.5 Albumin 3.9 g/dL 3.7-4.7 Globulin, Total 2.0 g/dL 1.5-4.5 Bilirubin, Total 0.4 mg/dL 0.0-1.2 Alkaline Phosphatase 68 IU/L 44-121 Ast (Sgot) 10 IU/L 0-40 Alt (SGPT) 8 IU/L 0-32 Glucose Fingerstick 07/09/2023 Inhouse Glucose Fingerstick 86 Basic Metabolic Panel (8) 07/09/2023 [facility] BUN 16 mg/dL 8-27 Potassium 3.8 mmol/L 3.5-5.2 Glucose 100 mg/dL High 70-99 Creatinine 0.79 mg/dL 0.57-1.0 0 eGFR 73 mL/min/1.73 >59 BUN/Creatinine Ratio 20 12-28 Sodium 134 mmol/L 134-144 Chloride 89 mmol/L Low 96-106 Carbon Dioxide, Total 26 mmol/L 20-29 Calcium 10.3 mg/dL 8.7-10.3 Lipid Panel 05/30/2023 [facility] Cholesterol, Total 221 mg/dL High (<200) Triglyceride 108 mg/dL (<150) HDL Chol 55 mg/dL (>39) LDL Cholesterol, Calculated 144 mg/dL High (0-130) Non HDL Cholesterol (Calc) 166 mg/dL High (<160) Hemoglobin A1c 05/30/2023 Inhouse Hemoglobin A1c 6.1% Glucose Fingerstick 05/30/2023 Inhouse Glucose Fingerstick 130 Free T4 05/30/2023 [facility] Free T4 1.16 ng/dL (0.70-1. 80) TSH With Reflex To FT4 05/30/2023 [facility] TSH With Reflex To FT4 4.05 uIU/mL (0.4-4.2 ) Comprehensive Metabolic Panl 05/30/2023 [facility] Glucose 126 mg/dL High (70-99) BUN 14 mg/dL (8-23) Creatinine 0.9 mg/dL (0.5-1.0 ) Sodium 132 mmol/L Low (133-145 ) Potassium 3.4 mmol/L Low (3.6-5.2 ) Chloride 91 mmol/L Low (98-107) Bicarbonate 30 mmol/L High (22-29) Anion Gap 11 (4-17) Albumin 4.0 GM/DL (3.4-4.8 ) Calcium 9.7 mg/dL (8.6-10. 5) Bilirubin,Total 0.3 mg/dL (0-1.2 ) Total Protein 6.1 GM/DL Low (6.2-8.2 ) Ag Ratio 1.9 Ast 13 U/L (0-32) Alk Phos 80 U/L (35-104) Alt 5 U/L (0-33) Estimated GFR Creatinine 67 ML/MIN/1.73M 2 2 Complete Abc With Diff 05/30/2023 [facility] WBC 5.9 K/MM3 (4.0-11. 0) RBC 4.66 M/MM3 (4.20-5. 40) HGB 13.4 GM/DL (11.7-15 .5) HCT 40.1 % (35.7-45 .8) MCV 86.1 FL (80.0-10 0.0) MCH 28.8 pg (27.0-34 .0) MCHC 33.4 g/dL (33.0-37 .0) PLT 213 K/MM3 (150-460 ) RDW-SD 42.5 FL (<47.0) MPV 10.7 FL (9.4-12. 4) Automated NRBC 0.0 #/100WBC'S Abs. NRBC 0.0 K/MM3 Neut # 4.5 K/MM3 (1.3-7.0 ) Lymph # 0.9 K/MM3 (0.8-3.1 ) Cotton# 0.4 K/MM3 (0.4-0.9 ) Eo # 0.1 K/MM3 (0.0-0.4 ) Baso # 0.0 K/MM3 (0.0-0.1 ) Abs. Imm Gran 0.0 K/MM3 Neut 76.0 % (44-76) Lymph 15.4 % (15-43) Monocyte 6.6 % (4.5-10. 5) Eo 1.0 % (0-6) Baso 0.7 % (0-2) Imm Gran 0.3 % 25Oh Vitamin D 05/30/2023 [facility] 25Oh Vitamin D 56.3 NG/ML High (20-50) TSH With Reflex To FT4 01/24/2023 [facility] TSH With Reflex To FT4 <pending> Hemoglobin A1c 01/24/2023 Inhouse Hemoglobin A1c 6.1% Glucose Fingerstick 01/24/2023 Inhouse Glucose Fingerstick 118 25Oh Vitamin D 01/24/2023 [facility] 25Oh Vitamin D <pending> Hemoglobin A1c 10/04/2022 Inhouse Hemoglobin A1c 6.1% Glucose Fingerstick 10/04/2022 Inhouse Glucose Fingerstick 118 Complete Abc With Diff 05/24/2022 [facility] WBC 6.4 K/MM3 (4.0-11. 0) RBC 4.77 M/MM3 (4.20-5. 40) HGB 13.6 GM/DL (11.7-15 .5) HCT 42.3 % (35.7-45 .8) MCV 88.7 FL (80.0-10 0.0) MCH 28.5 pg (27.0-34 .0) MCHC 32.2 g/dL Low (33.0-37 .0) PLT 231 K/MM3 (150-460 ) RDW-SD 42.2 FL (<47.0) MPV 9.3 FL Low (9.4-12. 4) Automated NRBC 0.0 #/100WBC'S Abs. NRBC 0.0 K/MM3 Neut # 4.6 K/MM3 (1.3-7.0 ) Lymph # 1.2 K/MM3 (0.8-3.1 ) Cotton# 0.5 K/MM3 (0.4-0.9 ) Eo # 0.0 K/MM3 (0.0-0.4 ) Baso # 0.0 K/MM3 (0.0-0.1 ) Abs. Imm Gran 0.0 K/MM3 Neut 72.4 % (44-76) Lymph 18.2 % (15-43) Monocyte 7.7 % (4.5-10. 5) Eo 0.5 % (0-6) Baso 0.6 % (0-2) Imm Gran 0.6 % Hemoglobin A1c 05/24/2022 Inhouse Hemoglobin A1c 6.1% Glucose Fingerstick 05/24/2022 Inhouse Glucose Fingerstick 119 TSH With Reflex To FT4 05/24/2022 [facility] TSH With Reflex To FT4 3.34 uIU/mL (0.4-4.2 ) Comprehensive Metabolic Panl 05/24/2022 [facility] Glucose 120 mg/dL High (70-99) BUN 15 mg/dL (8-23) Creatinine 0.8 mg/dL (0.5-1.0 ) Sodium 132 mmol/L Low (133-145 ) Potassium 3.5 mmol/L Low (3.6-5.2 ) Chloride 91 mmol/L Low (98-107) Bicarbonate 34 mmol/L High (22-29) Anion Gap 7 (4-17) Albumin 4.3 GM/DL (3.4-4.8 ) Calcium 10.4 mg/dL (8.6-10. 5) Bilirubin,Total 0.3 mg/dL (0-1.2 ) Total Protein 6.6 GM/DL (6.2-8.2 ) Ag Ratio 1.9 Ast 11 U/L (0-32) Alk Phos 83 U/L (35-104) Alt 9 U/L (0-33) Estimated GFR Creatinine 71 ML/MIN/1.73M 2 3 25Oh Vitamin D 05/24/2022 [facility] 25Oh Vitamin D 52.1 NG/ML High (20-50) Basic Metabolic Panel 02/16/2022 [facility] Glucose 106 mg/dL High (70-99) BUN 18 mg/dL (8-23) Creatinine 0.9 mg/dL (0.5-1.0 ) Sodium 132 mmol/L Low (133-145 ) Potassium 3.8 mmol/L (3.6-5.2 ) Chloride 92 mmol/L Low (98-107) Bicarbonate 29 mmol/L (22-29) Anion Gap 11 (4-17) Calcium 10.0 mg/dL (8.6-10. 5) Estimated GFR Creatinine 63 ML/MIN/1.73M 2 4 Basic Metabolic Panel 02/12/2022 [facility] Glucose 101 mg/dL High (70-99) BUN 20 mg/dL (8-23) Creatinine 0.8 mg/dL (0.5-1.0 ) Sodium 131 mmol/L Low (133-145 ) Potassium 3.9 mmol/L (3.6-5.2 ) Chloride 94 mmol/L Low (98-107) Bicarbonate 30 mmol/L High (22-29) Anion Gap 7 (4-17) Calcium 10.1 mg/dL (8.6-10. 5) Estimated GFR Creatinine 77 ML/MIN/1.73M 2 5 Electrolytes 02/06/2022 [facility] [address] Duplicate order <SEE NOTE> 6 Complete Abc With Diff 02/06/2022 [facility] WBC 4.7 K/MM3 (4.0-11. 0) RBC 4.38 M/MM3 (4.20-5. 40) HGB 13.0 GM/DL (11.7-15 .5) HCT 38.7 % (35.7-45 .8) MCV 88.4 FL (80.0-10 0.0) MCH 29.7 pg (27.0-34 .0) MCHC 33.6 g/dL (33.0-37 .0) PLT 217 K/MM3 (150-460 ) RDW-SD 41.6 FL (<47.0) MPV 10.7 FL (9.4-12. 4) Automated NRBC 0.0 #/100WBC'S Abs. NRBC 0.0 K/MM3 Neut # 3.3 K/MM3 (1.3-7.0 ) Lymph # 0.8 K/MM3 (0.8-3.1 ) Cotton# 0.4 K/MM3 (0.4-0.9 ) Eo # 0.1 K/MM3 (0.0-0.4 ) Baso # 0.1 K/MM3 (0.0-0.1 ) Abs. Imm Gran 0.0 K/MM3 Neut 71.2 % (44-76) Lymph 17.5 % (15-43) Monocyte 8.1 % (4.5-10. 5) Eo 1.7 % (0-6) Baso 1.1 % (0-2) Imm Gran 0.4 % Comprehensive Metabolic Panl 02/06/2022 [facility] Glucose 96 mg/dL (70-99) BUN 16 mg/dL (8-23) Creatinine 0.7 mg/dL (0.5-1.0 ) Sodium 128 mmol/L Low (133-145 ) Potassium 4.2 mmol/L (3.6-5.2 ) Chloride 95 mmol/L Low (98-107) Bicarbonate 24 mmol/L (22-29) Anion Gap 9 (4-17) Albumin 4.3 GM/DL (3.4-4.8 ) Calcium 10.1 mg/dL (8.6-10. 5) Bilirubin,Total 0.3 mg/dL (0-1.2 ) Total Protein 6.2 GM/DL (6.2-8.2 ) Ag Ratio 2.3 Ast 12 U/L (0-32) Alk Phos 79 U/L (35-104) Alt 8 U/L (0-33) Estimated GFR Creatinine 81 ML/MIN/1.73M 2 7 TSH With Reflex To FT4 02/06/2022 [facility] TSH With Reflex To FT4 3.60 uIU/mL (0.4-4.2 ) 25Oh Vitamin D 02/06/2022 [facility] 25Oh Vitamin D 55.3 NG/ML High (20-50) TSH With Reflex To FT4 01/10/2022 [facility] TSH With Reflex To FT4 <pending> 25Oh Vitamin D 01/10/2022 [facility] 25Oh Vitamin D <pending> Glucose Fingerstick 01/10/2022 Inhouse Glucose Fingerstick 129 Hemoglobin A1c 01/10/2022 Inhouse Hemoglobin A1c 5.9% 1 The following cut-po ints have been suggested for the use of proBNP for the diagnostic evaluation of heart failure (HF) in patients with acute dyspnea: Modality Age Optimal Cut (years) Point Diagnosis (rule in HF) <50 450 pg/mL 50 - 75 900 pg/mL >75 1800 pg/mL Exclusion (rule out HF) Age independent 300 pg/mL 2 Creatinine based est imated glomerular filtration (eGFR) in adults is calculated using the [employer] recommended 2021 CKD-EPI equation. Estimates GFR from serum creatinine, age and sex. 3 Creatinine based est imated glomerular filtration (eGFR) in adults is calculated using the [employer] recommended 2021 CKD-EPI equation. Estimates GFR from serum creatinine, age and sex. 4 Creatinine based est imated glomerular filtration (eGFR) in adults is calculated using the [employer] recommended 2021 CKD-EPI equation. Estimates GFR from serum creatinine, age and sex. 5 Creatinine based est imated glomerular filtration (eGFR) in adults is calculated using the [employer] recommended 202 CKD-EPI equation. Estimates GFR from serum creatinine, age and sex. 6 Duplicate order canc elled via interface 7 Creatinine based est imated glomerular filtration (eGFR) in adults is calculated using the [employer] recommended 2020 CKD-EPI equation. Estimates GFR from serum creatinine, age and sex. Procedures Date Code Description Status 10/14/2023 14814 Collection Of Venous Blood B y Venipuncture Completed 07/09/2023 12948 Collection Of Venous Blood B y Venipuncture Completed 05/30/2023 60602 Collection Of Venous Blood B y Venipuncture Completed Medical Devices Description No Information Available Encounters Type Date Location Provider Dx Diagnosis Office Visit 10/30/2023 7:21p Main Office Shanti Constantino M.D. E11.9 Type 2 diabetes mellitus without complications I10 Essential (primary) hypertension Assessments Date Code Description Provider 10/30/2023 E11.9 Type 2 diabetes mellitus without complications Shanti Constantino M.D. 10/30/2023 I10 Essential (primary) hyperten sourav Shanti Constantino M.D. Plan of Treatment No Information Available Functional Status Description No Information Available Mental Status Description No Information Available Referrals Refer to Reason for Referral Status Appt [facility] CONGESTIVE HEA RT FAILURE, AFIB, CHRONIC DIASTOLIC HEART FAILURE Closed [address] [facility] [facility] [phone] [facility] EVALUATE DYSPNEA Patient Declined 0 12/05/2023 [address] [place] [address] [phone] Rosangela Butler MD HEMORRHOIDS (COLORECTAL) Closed 04/03/[address] [place] [address] [address] [place] [address] [phone] [facility] HEARING LOSS HEARING AIDE A DJUSTMENT Closed 07/23/[address] [place] [address] [phone]
== END 2024-11-24 16:13 | disposition home or self-care (01) ==
LOC: HO.HMCFM 15:19
PROVIDERS: PCP Internal Medicine; Visit Provider Internal Medicine
DX: I10 Essential (primary) hypertension (principal); I50.33 Acute on chronic diastolic (congestive) heart failure; I48.19 Other persistent atrial fibrillation; R91.8 Other nonspecific abnormal finding of lung field

== ENCOUNTER → 2024-11-24 15:18 | Outpatient (BNVA) | payer MEDICARE, SELFPAY | PROVIDERS: PCP Internal Medicine; Visit Provider Internal Medicine | DX: I11.0 Hypertensive heart disease with heart failure (principal); I50.33 Acute on chronic diastolic (congestive) heart failure; I48.19 Other persistent atrial fibrillation; R91.8 Other nonspecific abnormal finding of lung field; Z79.01 Long term (current) use of anticoagulants; Z79.899 Other long term (current) drug therapy; Z13.31 Encounter for screening for depression | CPT/HCPCS: 96127; 99212 ==

== ENCOUNTER 2024-12-22 14:34 | Outpatient (AMB) | payer MEDICARE, SELFPAY ==
--- NOTE | 2024-12-22 14:37 | MHC.PC.OV ---
Vital Signs 12/22/24 14:44 BMI Reason not done Patient refused/unable BP 116/74 Blood Pressure Location Lt brachial Position Sitting Respiration 14 Pulse 58 Pulse Source Pulse Oximeter Pulse Oximetry (%) 96 Oxygen Delivery Method Room Air Intake Visit Reasons: gout flare Intake Note: Gout flare. Wound check right leg, had a blister. Exchange Mechanic Required: No Allergies cephalexin (From Keflex) Allergy (Severe, Verified 12/22/24 14:44) Unknown ciclopirox (From Loprox) Allergy (Severe, Verified 12/22/24 14:44) Unknown ciprofloxacin Allergy (Severe, Verified 12/22/24 14:44) Unknown hydromorphone (From Dilaudid) Allergy (Severe, Verified 12/22/24 14:44) Unknown tetracycline Allergy (Severe, Verified 12/22/24 14:44) Unknown Tobacco use date assessed: 11/24/24 Dental Screening Dental Screen Date: 11/24/24 HPI HPI Comments History of Present Illness Details The patient is a 89-year-old female with a past medical history of paroxysmal atrial fibrillation, diastolic CHF, hypertension, pacemaker, chest pain, multiple pulmonary nodules, renal lesion, hypertension, lymphedema presenting for follow up CV: On bumex- 2mg am/pm, alternating with 3mg am/2mg pm, spironolactone 25 mg daily, Xarelto 20 mg daily, carvedilol and irbesartan. Follows with [facility] EP, Dr Coleman. Following with cardiology at [facility]. Denies cp. Endorses fatigue. Still notes pedal swelling, leg swelling has improved. She had a large blood blister on the right medial lower leg that burst. There is now a non healing eschar without surrounding redness. Family is applying neosporin and non adherent bandages but it has not been healing Seen at [facility] ER in August 2023. Presented with chest pain. ACS rule out. Prior to this she was hospitalized for cellulitis of the neck and noted to be hypokalemic. CT angio of the chest done at this ER visit noted a 1.3 cm right lower lobe pulmonary nodule that had been seen in the past but had increased in size. Chest CT in 6 months was recommended. There was a hyperdense lesion of the left kidney with recommendation for renal protocol MRI or CT. She was treated for hypertensive urgency. GI: Colonoscopy was in 2013. There was a polypectomy done at that time. Her last H&H as of 08/2023 was normal. She had gastritis, gastroenteritis in 12/2023 for which she was treated in [facility]. She has history of anal fissures, rectal pain and has seen colorectal. ROS see HPI PHYSICAL EXAM: GENERAL: Alert and oriented x 3. NAD EYES: EOMI. Anicteric. HENT: Moist mucous membranes. No scleral icterus. LUNGS: Clear to auscultation bilaterally. CARDIOVASCULAR: Regular rate and rhythm. No murmur. No JVD. ABDOMEN: Soft, non-tender +bs EXTREMITIES: 1+ pedal edema SKIN: Thin. Senile purpura. right medial leg 2cm circular eschar serosanguinous, no surrounding erythema or warmth. NEUROLOGIC: No focal neurological deficits. Generally weak PSYCHIATRIC: Cooperative. Appropriate mood and affect [facility] Medical History History of echocardiogram GERD (gastroesophageal reflux disease) Epileptic seizure Venous insufficiency Diverticulosis Pacemaker Lymphedema Hypertension Sick sinus syndrome Lumbar degenerative disc disease CHF (congestive heart failure) Atrial fibrillation Hypokalemia Chest pain Multiple pulmonary nodules Renal lesion Surgical History History of colonoscopy with polypectomy History of cholecystectomy History of hysterectomy Family History Mother Hypertension Father Hypertension Cancer Social History Household Members: Other Housing: Assisted Living Facility 75 years or older and lives alone: No Alcohol intake: unknown Patient Tobacco Use Status: Never used Tobacco e-Cigarette/Vaping Use: Never Used service: No Current occupational status: retired Current occupational exposures/hazards: No Cognitive needs: No Hearing needs: Yes Vision needs: Yes Questionnaire Thrive Questionnaire Date Thrive assessed: 05/23/24 I am a: Patient What is your living situation today?: I have a steady place to live Within the past 12 months, did the food you bought not last and you didn't have the money to get more?: Never true Within the past 12 months, did you worry whether your food would run out before you got money to buy more?: Never true Do you have trouble paying for medicines?: No Do you have trouble getting transportation to medical appointments?: No Do you have trouble paying your heating and electricity bill?: No Do you have trouble taking care of your child, family member or friend?: No Do you have trouble with day-to-day activities such as bathing, preparing meals, shopping, managing finances, etc.?: No Are you currently unemployed and looking for a job?: No Are you interested in more education?: No Please select the resources that you would like help with: None Currently or been in a relationship where the following occur: No concerns reported THRIVE Score: 0 DANAY-7 AMB Questionnaire DANAY-7 Date DANAY - 7 assessed: 05/26/24 Source: Developed by Drs. Getachew Marrero, Daphne Slater, Elliott Graves and colleagues, with an educational russell from [employer]. Physical exam (Primary Care) Vital Signs: Last Vital Signs Pulse 58 12/22/24 14:44 Resp 14 12/22/24 14:44 BP 116/74 12/22/24 14:44 Pulse Ox 96 12/22/24 14:44 Oxygen Delivery Method Room Air 12/22/24 14:44 Tobacco/Smoking Status: Tobacco use Status Tobacco use date assessed 11/24/24 12/22/24 14:39 Patient Tobacco Use Status Never used Tobacco 12/22/24 14:39 e-Cigarette/Vaping Use Never Used 12/22/24 14:39 Thrive Assessment: Date of Thrive Assessment Date Thrive assessed 05/23/24 12/22/24 14:39 Currently or been in a relationship where the following occur: No concerns reported Coding Level of Care Code Est Pt Level 4 (53591) Diagnoses Gout of wrist, unspecified cause, unspecified chronicity, unspecified laterality M10.9 Gout site: wrist Gout etiology: unspecified cause Chronicity: unspecified Laterality: unspecified laterality Wound of right lower extremity, subsequent encounter S81.801D Laterality: right Encounter type: subsequent encounter Lymphedema I89.0 Assessment & Plan Assessment & Plan (1) Gout: Code(s): M10.9 - Gout, unspecified Category: Medical Qualifiers: Gout site: wrist Gout etiology: unspecified cause Chronicity: unspecified Laterality: unspecified laterality Qualified Code(s): M10.9 - Gout, unspecified (2) Wound of lower extremity: Code(s): S81.809A - Unspecified open wound, unspecified lower leg, initial encounter Category: Medical Qualifiers: Laterality: right Encounter type: subsequent encounter Qualified Code(s): S81.801D - Unspecified open wound, right lower leg, subsequent encounter (3) Lymphedema: Code(s): I89.0 - Lymphedema, not elsewhere classified Category: Medical Plan Lower extremity wound-patient with non healing, non infected right lower extremity wound-referral [facility] for wound care. She is essentially homebound, transport with , partial assist Recent gout, now resolved. They will keep colchicine at home as needed. Bumex 4mg/5mg total alternating days. Increase potassium to 40meq daily Orders: Referrals Home Health Referral S81.809A - Unspecified open wound, unspecified lower leg, initial encounter Medications: New potassium chloride ER (Klor-Con M) 40 mEq (2 x 20 mEq) PO DAILY 180 tabs 1RF colchicine Take 1.2mg oral once then 0.6 hour oral one hour later then 1 tab oral daily for 10 days 90 tabs 0RF gout colchicine 0.6 mg PO DAILY 90 tabs 0RF Discontinued potassium chloride ER Discontinued Reason: Doctor's Order 30 mEq (3 x 10 mEq) PO DAILY 270 caps 3RF
[2024-12-22 14:44] VITALS: BP 116/74; PULSE 58; RESP 14; O2SAT 96
--- OUTSIDE RECORDS SUMMARY | 2024-12-22 15:32 | XMS_ITS | Patient Health Record ---
Author Organization [facility] Address [address] [place] [address] Care Team Providers Care Valve Lapper Name Role Phone Dougie MENDEZ, Shanti Primary Care Provider Unavailable Nicolas Lauren Unavailable [phone] Allergies Allergen (clinical drug ingredient) Drug/Non Drug [...] atherosclerosis of arteries of lower limbs (disorder) ([id number] ) Atherosclerosis of [place] artery of both lower extremities, with unspecified presence of clinical manifestation (I70.203) Active confirmed Plan Of Treatment Pending Test Test Name Order Date 13533-SHZQYMQ NAIL, 6 OR MORE 05/03/2011 29973-MGUPOXG NAIL, 6 OR MORE 07/26/2011 49182-SPVFVSM NAIL, 6 OR MORE 10/04/2011 13995-MAPSWGD NAIL, 6 OR MORE 01/03/2012 44977-WCNKBDT NAIL, 6 OR MORE 07/14/2012 59771-KIFHAIL NAIL, 6 OR MORE 10/06/2012 41026-XBBGGBN NAIL, 6 OR MORE 01/12/2013 68234-ILNEZTB NAIL, 6 OR MORE 04/13/2013 89213-VOUISJO NAIL, 6 OR MORE 08/13/2013 31325-RGSSFKI NAIL, 6 OR MORE 11/12/2013 43506-AGXGEXT NAIL, 6 OR MORE 02/11/2014 16970-JJCOEPU NAIL, 6 OR MORE 05/10/2014 06870-ZQUIISU NAIL, 6 OR MORE 08/09/2014 76052-VUWTBAD NAIL, 6 OR MORE 11/08/2014 55409-GHRRBGT NAIL, 6 OR MORE 03/02/2015 59530-UFFGWFV NAIL, 6 OR MORE 06/01/2015 49498-NUSWEYQ NAIL, 6 OR MORE 09/12/2015 23199-HLTHYGT NAIL, 6 OR MORE 12/12/2015 37532-PEKEPXY NAIL, 6 OR MORE 03/12/2016 81582-FGNDLDY NAIL, 6 OR MORE 06/27/2016 00455-PMFCQSH NAIL, 6 OR MORE 11/05/2016 82064-JPEZIEW NAIL, 6 OR MORE 01/31/2017 13146-INQCWXC NAIL, 6 OR MORE 05/29/2017 21022-FSEPEKD NAIL, 6 OR MORE 09/18/2017 96629-QRKEWEW NAIL, 6 OR MORE 12/11/2017 11807-IIWYTPV NAIL, 6 OR MORE 05/28/2018 21196-RBWMFDR NAIL, 6 OR MORE 08/28/2018 02693-VUJLZZC NAIL, 6 OR MORE 02/02/2019 60773-OKSBHNB NAIL, 6 OR MORE 05/07/2019 81821-ERBETVB NAIL, 6 OR MORE 10/26/2019 33321-TAQUFJE NAIL, 6 OR MORE 01/25/2020 68255-UYGRYXC NAIL, 6 OR MORE 05/19/2020 42128-YASCYRH NAIL, 6 OR MORE 08/18/2020 03618-BUPKSKO NAIL, 6 OR MORE 11/21/2020 20812-GWRNELB NAIL, 6 OR MORE 03/08/2021 40861-DBWOAEP NAIL, 6 OR MORE 06/07/2021 56417-WQFGXCD NAIL, 6 OR MORE 09/07/2021 73266-OASRCLN NAIL, 6 OR MORE 12/11/2021 88946-OTVCSSD NAIL, 6 OR MORE 03/29/2022 84943-Dwtf Destruction, -11/08/2014 34275-Rgml Destruction, -08/09/2014 17185-Mbnj Destruction, -05/10/2014 49941-Qjtk Destruction, -11/12/2013 64634-Ngay Destruction, -02/11/2014 93118-Ykydlkqb Plate 02/11/2014 89956-Jclrbvui Plate 11/12/2013 87720-Hmtzpwbt Plate 04/13/2013 02303-Sznhqjxk Plate 05/10/2014 17043-Vajdcfcu Plate 08/09/2014 32071-Yttyewqw Plate 01/12/2013 59406-Pqjtbdfn Plate 10/06/2012 55065-Djvdurgs Plate 07/14/2012 26474-Txjsegjj Plate 01/03/2012 75205-Cdnfznmd Plate 10/04/2011 62439-Enxrvnso Plate 05/03/2011 28274-Ddyrlmrk Plate 07/26/2011 41114-Lbsxfxyh Plate 11/08/2014 27260-Pjhsyjxl Plate 06/01/2015 89210-Vxzdhrvx Plate 03/02/2015 39119-Arihbhxz Plate 10/26/2019 14046-Jagkgqkj Plate 03/29/2022 26000-Dvcifnet Plate 12/11/2021 41744-Lfcmucvo Plate 09/07/2021 30093-Vimwkkug Plate 02/02/2019 52427-Qgwwuvms Plate 11/21/2020 87597-Eosszzeo Plate 01/25/2020 43276-Oigdreat Plate Each Additional 07/2014 88366-Isppalag Plate Each Additional 06/2015 71375-Vfnpwxiz Plate Each Additional 31707-Zhgkqksp Plate Each Additional 66106-Kgiesnjg Plate Each Additional 08/2011 26886-Xaecdlkg Plate Each Additional 10/2011 58140-Dxaxpygz Plate Each Additional 64800-Qcpmtwnk Plate Each Additional 01/2013 62377-Dxjdhzan Plate Each Additional 38258-Ggopmybe Plate Each Additional 07943-Wtqwajkj Plate Each Additional 03/2015 89445-Gmoiivfm Plate Each Additional 48892-Vtnkbhmr Plate Each Additional 75312-GLKK SKIN LESIONS, 2 TO 4 02/01/20 17 22733-BDRS SKIN LESIONS, 2 TO 4 06/28/19 17 09245-PJRI SKIN LESIONS, 2 TO 4 11/06/19 17 04205-BRLS SKIN LESIONS, 2 TO 4 10/26/19 20 16547-MINN SKIN LESIONS, 2 TO 4 05/07/19 20 50427-MXXW SKIN LESIONS, 2 TO 4 02/03/20 19 72026-WHRT SKIN LESIONS, 2 TO 4 08/29/19 19 50793-JJHO SKIN LESIONS, 2 TO 4 05/28/19 19 91474-OSLH SKIN LESIONS, 2 TO 4 12/12/19 18 01770-XVNX SKIN LESIONS, 2 TO 4 09/19/19 18 67189-JQSC SKIN LESIONS, 2 TO 4 05/29/19 18 16826-HGEM SKIN LESIONS, 2 TO 4 01/25/20 20 71413-QBIH SKIN LESIONS, 2 TO 4 05/19/19 21 33198-YWUH SKIN LESIONS, 2 TO 4 11/22/19 21 80603-VACX SKIN LESIONS, 2 TO 4 08/19/19 21 80525-IETU SKIN LESIONS, 2 TO 4 03/08/20 21 21467-WASM SKIN LESIONS, 2 TO 4 09/08/19 22 90554-VAVA SKIN LESIONS, 2 TO 4 06/07/19 22 36041-LJRV SKIN LESIONS, 2 TO 4 12/12/19 22 83101-FDTS SKIN LESIONS, 2 TO 4 03/29/20 22 50952-HCZX SKIN LESION 03/12/2016 18804-DEFI SKIN LESION 12/12/2015 Insurance Providers Payer Name Payer Address Payer Phone Subscriber Number Group Number Insured Name Patient Relationship to Insured Coverage Start Date Coverage End Date Medicare National [employer] [address] [place] [address] [id number] Gila Englishon Self - patient is the insured 2 [employer] [address] [place] [address] [id number] Gila Englishon Self - patient is the insured Medical (General) History Medical History History ICD Code back, hip, knee pain chicken pox heart condition hypertension mumps measles pacemaker x 3 reflux epilepsy Arthritis - Degenerative Surgical History Surgery Date(Month/Year) cholecystectomy hysterectomy cardiac pacemaker gall stones Hospitalization History Reason Date(Month/Year) congestive heart failure 03/2015 [facility]- Pacemaker 09/28/2019
--- OUTSIDE RECORDS SUMMARY | 2024-12-22 15:32 | XMS_ITS | Clinical Summary ---
Author Organization [facility] Address [address] [facility] [address] [place] [address] Phone Care Team Providers Care Discharge Coordinator Name Role Phone Shanti Constantino MD Primary [...] 09/19/2020 Medications Cholecalciferol (Vitamin D3) 1.25 MG (35257 UT) capsule Take 1 capsule by mouth [...] Type 2 diabetes mellitus 01/10/2022 Atherosclerosis of [place] arteries of the extrem ities 10/17/2021 Hypertension [...] 10.0 8.7 - 10.7 mg/dL eGFR Non-Afr [place] 78 Vitamin D, 25-OH, Total 63.5 ng/mL Hemoglobin A1C 5.8 4.0 - 6.0 01/25/2021 Historical Provider LAB BLOOD ORDERABLES Cindy l Result from Last 3 Months or Most Recently Relevant to Health Maintenance Insurance [address] [place] [address] [facility] Medicare [facility] Medicare Care Teams Discharge Coordinator Relationship Specialty Start Date End Date Shanti Constantino MD [address] [place] [address] [address] [place] [address] PCP - General Endocrinology 09/19/20
--- OUTSIDE RECORDS SUMMARY | 2024-12-22 15:32 | XMS_ITS | Continuity of Care Document ---
Author Organization [facility] [address] [facility] [address] [place] [address] Phone [phone] Care Team Providers Care Intermission Coordinator Name Role Phone Shanti Constantino M.D. Care Team Informati on [facility] [phone] Problems Active Problems Provider Date Essential hypertension [...] SIG Qnty Indications Order ing Provider Date Btlmlfkrcv58so Tablets 1 by mouth every day in evening 90tabs Shanti Constantino M.D. 10/15/2023 Amlodipine Wioxqktn8qw Tablets 1 by mouth every day 90tabs Shanti Constantino M.D. 09/12/[address] Take 1 Capsule By Mouth Once A Day Unknown Pqpxyczamhczsb52wl Tablets Take 1 Tablet By Mouth Every Day Unknown Mwihcwy65kv Tablets Take 1 Tablet By Mouth Every Evening Unknown Dehdnakrla015mx Capsules Take 3 Capsules By Mouth AT Bedtime Alternating With 4 Capsules Unknown Tramadol QWF43ox Tablets Take 1 Tablet By Mouth Twice A Day as Needed 60tabs M19.90 Shanti Constantino M.D. Ammonium Bkgehug25% Cream Apply To Affected Area Twice Daily On Feet For 30 Days Leonidas Tevin, DPM Vitamin D (Ergocalciferol)5000 0Unit Capsules 1 cap by mouth every 3 weeks 14caps Shanti Constantino M.D. Atorvastatin Bdsjrbu61vl Tablets 1 by mouth every day 30tabs Shanti Constantino M.D. Rclyfg738ra Capsules 1 by mouth every day as needed Shanti Constantino M.D. Flonase Allergy Llpfqo72lki/Act Suspension 1 pump both nostrils twice a day as needed 9.900ml Shanti Constantino M.D. Kyrutpk15GB/Scoop Powder take daily prn Shanti Constantino M.D. [...] Calcium 10.3 mg/dL 8.7-10.3 Lipid Panel 05/30/2023 [facility] Cholesterol, Total 221 mg/dL High (<200) Triglyceride 108 mg/dL (<150) HDL Chol 55 mg/dL (>39) LDL Cholesterol, Calculated 144 mg/dL High (0-130) Non HDL Cholesterol (Calc) 166 mg/dL High (<160) Hemoglobin A1c 05/30/2023 Inhouse Hemoglobin A1c 6.1% Glucose Fingerstick 05/30/2023 Inhouse Glucose Fingerstick 130 Free T4 05/30/2023 [facility] Free T4 1.16 ng/dL (0.70-1. 80) TSH With Reflex To FT4 05/30/2023 [facility] TSH With Reflex To FT4 4.05 uIU/mL (0.4-4.2 ) Comprehensive Metabolic Panl 05/30/2023 [facility] Glucose 126 mg/dL High (70-99) [...] 2 2 Complete Abc With Diff 05/30/2023 [facility] WBC 5.9 K/MM3 (4.0-11. 0) [...] ) Lymph # 0.9 K/MM3 (0.8-3.1 ) [place]# 0.4 K/MM3 (0.4-0.9 ) Eo # 0.1 K/MM3 (0.0-0.4 ) Baso # 0.0 K/MM3 (0.0-0.1 ) Abs. Imm Gran 0.0 K/MM3 Neut 76.0 % (44-76) Lymph 15.4 % (15-43) Monocyte 6.6 % (4.5-10. 5) Eo 1.0 % (0-6) Baso 0.7 % (0-2) Imm Gran 0.3 % 25Oh Vitamin D 05/30/2023 [facility] 25Oh Vitamin D 56.3 NG/ML High (20-50) TSH With Reflex To FT4 01/24/2023 [facility] TSH With Reflex To FT4 <pending> Hemoglobin A1c 01/24/2023 Inhouse Hemoglobin A1c 6.1% Glucose Fingerstick 01/24/2023 Inhouse Glucose Fingerstick 118 25Oh Vitamin D 01/24/2023 [facility] 25Oh Vitamin D <pending> Hemoglobin A1c 10/04/2022 Inhouse Hemoglobin A1c 6.1% Glucose Fingerstick 10/04/2022 Inhouse Glucose Fingerstick 118 Complete Abc With Diff 05/24/2022 [facility] WBC 6.4 K/MM3 (4.0-11. 0) [...] ) Lymph # 1.2 K/MM3 (0.8-3.1 ) [place]# 0.5 K/MM3 (0.4-0.9 ) Eo # 0.0 [...] 119 TSH With Reflex To FT4 05/24/2022 [facility] TSH With Reflex To FT4 3.34 uIU/mL (0.4-4.2 ) Comprehensive Metabolic Panl 05/24/2022 [facility] Glucose 120 mg/dL High (70-99) [...] ML/MIN/1.73M 2 3 25Oh Vitamin D 05/24/2022 [facility] 25Oh Vitamin D 52.1 NG/ML High (20-50) Basic Metabolic Panel 02/16/2022 [facility] Glucose 106 mg/dL High (70-99) BUN 18 mg/dL (8-23) Creatinine 0.9 mg/dL (0.5-1.0 ) Sodium 132 mmol/L Low (133-145 ) Potassium 3.8 mmol/L (3.6-5.2 ) Chloride 92 mmol/L Low (98-107) Bicarbonate 29 mmol/L (22-29) Anion Gap 11 (4-17) Calcium 10.0 mg/dL (8.6-10. 5) Estimated GFR Creatinine 63 ML/MIN/1.73M 2 4 Basic Metabolic Panel 02/12/2022 [facility] Glucose 101 mg/dL High (70-99) BUN 20 mg/dL (8-23) Creatinine 0.8 mg/dL (0.5-1.0 ) Sodium 131 mmol/L Low (133-145 ) Potassium 3.9 mmol/L (3.6-5.2 ) Chloride 94 mmol/L Low (98-107) Bicarbonate 30 mmol/L High (22-29) Anion Gap 7 (4-17) Calcium 10.1 mg/dL (8.6-10. 5) Estimated GFR Creatinine 77 ML/MIN/1.73M 2 5 Electrolytes 02/06/2022 [facility] [address]57 Duplicate order <SEE NOTE> 6 Complete Abc With Diff 02/06/2022 [facility] WBC 4.7 K/MM3 (4.0-11. 0) [...] ) Lymph # 0.8 K/MM3 (0.8-3.1 ) [place]# 0.4 K/MM3 (0.4-0.9 ) Eo # 0.1 K/MM3 (0.0-0.4 ) Baso # 0.1 K/MM3 (0.0-0.1 ) Abs. Imm Gran 0.0 K/MM3 Neut 71.2 % (44-76) Lymph 17.5 % (15-43) Monocyte 8.1 % (4.5-10. 5) Eo 1.7 % (0-6) Baso 1.1 % (0-2) Imm Gran 0.4 % Comprehensive Metabolic Panl 02/06/2022 [facility] Glucose 96 mg/dL (70-99) BUN [...] 7 TSH With Reflex To FT4 02/06/2022 [facility] TSH With Reflex To FT4 3.60 uIU/mL (0.4-4.2 ) 25Oh Vitamin D 02/06/2022 [facility] 25Oh Vitamin D 55.3 NG/ML High (20-50) TSH With Reflex To FT4 01/10/2022 [facility] TSH With Reflex To FT4 <pending> 25Oh Vitamin D 01/10/2022 [facility] 25Oh Vitamin D <pending> Glucose [...] sex. Procedures Date Code Description Status 10/14/2023 86739 Collection Of Venous Blood B y Venipuncture Completed 07/09/2023 69608 Collection Of Venous Blood B y Venipuncture Completed 05/30/2023 89926 Collection Of Venous Blood B y Venipuncture [...] Reason for Referral Status Appt Donell e [facility] CONGESTIVE HEA RT FAILURE, AFIB, CHRONIC DIASTOLIC HEART FAILURE Closed [address] [facility] [address] [facility] [phone] [facility] Pulmonary EVALUATE DYSPNEA Patient Declined 0 12/05/2023 [address] [place] [address] [phone] Rosangela Butler MD HEMORRHOIDS (COLORECTAL) Closed 04/03/[address] [place] [address] Drive[address] [place] [address] [phone] [facility] HEARING LOSS HEARING AIDE A DJUSTMENT Closed 07/23/[address] [place] [address] [phone]
--- OUTSIDE RECORDS SUMMARY | 2024-12-22 15:32 | XMS_ITS ---
Author Organization [facility] Care Team Providers Care Solution Professional Name Role Phone Alicia Desai Unavailable Unavailable Margie Ross Unavailable Unavailable Ty Rojo Unavailable Unavailable Allergies and adverse reactions Code CodeSystem Substance Reaction Severity StartDate Concern Status 73252 RXNORM Tetracycline Unknown 12/10/2023 active 73579 RXNORM Loprox Unknown 12/10/2023 active 2231 RXNORM Keflex Unknown 12/10/2023 active 3423 RXNORM Dilaudid Unknown 12/10/2023 active 2551 RXNORM Ciprofloxacin Unknown 12/10/2023 active Care Team Name Role Address Phone Organization Jodi DEUTSCH [address] [place] [address], [address], [facility] (Office): : [facility] 12/10/2023 - 12/13/2023 Alicia Desai [address] [place], [address], [facility] (Office): : [facility] 12/10/2023 - 12/13/2023 Margie Ross [address], [address], [place] (Office): : [facility] 12/10/2023 - 12/13/2023 Immunizations Immunization Status Vaccine Details Vaccine Code CodeSystem Donell e Notes Influenza cancelled Influenza, split virus, trivalent, injectable, contains preservative 141 CVX created date: 12/11/2023 consent date: 12/10/2023 Pfizer Covid-19 Booster (SARS-COV-2) vaccine completed SARS-COV-2 (COVID-19) vaccine, mRNA, spike protein, LNP, preservative free, 30 mcg/0.3mL dose lotNumber: [id number] CVX created date: 12/12/2023 administered date: 03/30/2021 Pfizer Covid-19 Booster (SARS-COV-2) vaccine completed SARS-COV-2 (COVID-19) vaccine, mRNA, spike protein, LNP, preservative free, 30 mcg/0.3mL dose 208 CVX created date: 12/12/2023 administered date: 06/26/2020 Pfizer Covid-19 Booster (SARS-COV-2) vaccine completed SARS-COV-2 (COVID-19) vaccine, mRNA, spike protein, LNP, preservative free, 30 mcg/0.3mL dose 208 CVX created date: 12/12/2023 administered date: 06/05/2020 Mental Status Section Date Assessment Total Score Description 12/13/2023 BIMS 12 moderate cognit mauro impairment CAM 0 No delirium ind icated PHQ-9 00 Problems Problem # Description Date of onset Resolved Date Code CodeSystem Concern Status 1 ACUTE ON CHRONIC SYSTOLIC (CONGESTIVE) HEART FAILURE 12/10/[address] active 2 CHRONIC KIDNEY DISEASE, STAGE 2 (MILD) 12/10/[address] active 3 EPILEPSY, UNSPECIFIED, NOT INTRACTABLE, WITHOUT STATUS EPILEPTICUS 12/10/[address] active 4 ESSENTIAL (PRIMARY) HYPERTENSION 12/10/[address] active 5 GASTRITIS, UNSPECIFIED, WITHOUT BLEEDING 12/10/[address] active 6 GASTRO-ESOPHAGEAL REFLUX DISEASE WITHOUT ESOPHAGITIS 12/10/[address] active 7 HYPERTENSIVE URGENCY 12/10/[address] active 8 HYPOKALEMIA 12/10/[address] active 9 MUSCLE WASTING AND ATROPHY, NOT ELSEWHERE CLASSIFIED, MULTIPLE SITES 12/10/[address] active 10 OTHER HYPERTROPHIC CARDIOMYOPATHY 12/10/[address] active 11 PAROXYSMAL ATRIAL FIBRILLATION 12/10/[address] active 12 PRESENCE OF CARDIAC PACEMAKER 12/10/[address] active 13 RASH AND OTHER NONSPECIFIC SKIN ERUPTION 12/10/[address] active 14 UNSPECIFIED PROTEIN-CALORIE MALNUTRITION 12/10/[address] active Reason for Referral No Reasons for Referral Entered Social History Social History Observation Description Start Date End Date Code Code System Current Smoking Status Tobacco smoking consumption unknown 406815400 SNOMED CT Sex Assigned At Female 1935 [address]-0 [facility] Gender Identity Vital Signs Code Code System Vitals Name Values and Units Timing Information 9279-1 [facility] Respiratory Rate Value=17.0 Units=/m in 12/13/2023 8462-4 [facility] Blood Pressure-Diastolic Value=71 Un its=mmHg 12/13/2023 8480-6 [facility] Blood Pressure-Systolic Ptaix=252 Un its=mmHg 12/13/2023 8310-5 [facility] Body Temperature Value=98.1 Units= F 12/13/2023 8867-4 [facility] Heart rate Value=73.0 Units=/min 71884-8 [facility] O2 % BldC Oximetry Value=97.0 Units= % 12/13/2023 82559-0 [facility] Weight Rqrdn=702.8 Units=Lbs 79125-5 INC Pain Level Value=0.0 12/13/2023 8302-2 [facility] Height Value=64.0 Units=Inches 12/10/2023
== END 2024-12-22 15:27 | disposition home or self-care (01) ==
LOC: HO.HMCFM 14:35
PROVIDERS: PCP Internal Medicine; Visit Provider Internal Medicine
DX: M10.9 Gout, unspecified (principal); S81.801D Unspecified open wound, right lower leg, subsequent encounter; I89.0 Lymphedema, not elsewhere classified

== ENCOUNTER → 2024-12-22 14:34 | Outpatient (BNVA) | payer MEDICARE, SELFPAY | PROVIDERS: PCP Internal Medicine; Visit Provider Internal Medicine | DX: M10.9 Gout, unspecified (principal); S81.801D Unspecified open wound, right lower leg, subsequent encounter; I89.0 Lymphedema, not elsewhere classified; I11.0 Hypertensive heart disease with heart failure; I50.30 Unspecified diastolic (congestive) heart failure; I48.0 Paroxysmal atrial fibrillation; Z79.01 Long term (current) use of anticoagulants; Z79.899 Other long term (current) drug therapy; Z95.0 Presence of cardiac pacemaker | CPT/HCPCS: 99212 ==